=== PATIENT | female | born 1940 | race Caucasian/White ===

== ENCOUNTER 2017-01-02 09:51 | Emergency (ER) | payer OTHER, MEDICARE ==
[~2017-01-02] VITALS: Ht 149.9 cm; Wt 59.8 kg
[~2017-01-02 09:51] MED LIST: ALBUAER19 INH; ALEN70TA4 PO; ATEN25TA PO; CALC200T PO; FLUT230A INH; IPRASOL34 INH; LOSA50TA6 PO; PRLSR20 PO; PRVC/40 PO; TRAM-10 PO
[2017-01-02 10:24] VITALS: TEMP 37.2; Ht 149.9 cm; Wt 59.8 kg
[2017-01-02] MEDS ORDERED: SODIUM CHLORIDE 0.9% 1000ML 1,000 ML IV STA (11:04)
[2017-01-02] MEDS ORDERED: SODIUM CHLORIDE 0.9% 250ML 250 ML IV STA (11:04)
[2017-01-02] MEDS ORDERED: MoRPHine SULFATE 4 MG/ML 1 ML CARP\\VIAL IV STA (11:04)
[2017-01-02] MEDS ORDERED: ONDANSETRON INJ 2 MG/ML 2 ML VIAL IV STA (11:04)
[2017-01-02] MEDS ORDERED: OPTIRAY 320 IV PRN (11:15)
--- NOTE | 2017-01-02 11:15 | EMERGENCY ROOM VISIT NOTE ---
History Report prepared by Bharti: Wilbur Soriano Under the Supervision of: Dr. Abiola Horner M.D. First contact with patient: 10:40 Chief Complaint: ABDOMINAL PAIN Stated Complaint: LLQ SEVERE PAIN,SMALL BOWEL MOVEMENT,BLOODY STOOL History of Present Illness The patient is a 76 year old female who presents to the Emergency Room with complaints of severe and persistent left lower quadrant abdominal pain starting yesterday. She was recently diagnosed with an abscess and diverticulitis. She was started on Cipro and Flagyl with some relief. Yesterday, she had a sudden onset of her abdominal pain. Yesterday, she also started having chills, abdominal distention, diarrhea, and intermittent blood in stool. The patient denies fevers, lower extremity swelling, or any other complaints. She has a history of rectal hemorrhoids. She denies any history of kidney issues. Source of History: patient Onset: yesterday Position: abdomen (LLQ) Symptom Intensity: severe Timing: other (persistent) Associated Symptoms: + chills, + diarrhea, No fevers Review of Systems See HPI for pertinent positives & negatives. A total of 10 systems reviewed and were otherwise negative. Past Medical & Surgical Medical Problems: (1) Asthma (2) Bronchitis (3) Colonic diverticular abscess (4) Dyslipidemia (5) GERD (gastroesophageal reflux disease) (6) Heart disease (7) Hemorrhoids (8) Hypertension (9) Osteoporosis (10) PMR (polymyalgia rheumatica) Surgical Problems: (1) History of cholecystectomy Family History Cancer Diabetes mellitus Gallbladder disease Heart disease Hypertension Lung disease Seizures Social History Smoking Status: Never Smoker Alcohol Use: occasionally Marital Status: Housing Status: lives with significant other Current/Historical Medications Scheduled Atenolol (Tenormin), 25 MG PO DAILY Calcium Carbonate-Vitamin D (Oscal 500/200 D-3), 1 TAB PO DAILY Cetirizine (Zyrtec), 10 MG PO DAILY Ciprofloxacin Tab (Cipro), 500 MG PO BID Fluticasone-Salmeterol 230/21 Mcg (Advair Hfa 230/21 Mcg), 2 PUFFS INH BID Losartan Potassium (Cozaar), 75 MG PO DAILY Metronidazole (Flagyl), 500 MG PO TID Prednisone (Prednisone), 5 MG PO DAILY Scheduled PRN Albuterol Inhaler (Ventolin Inhaler), 2 PUFFS INH Q4H PRN for SOB/Wheezing Omeprazole (Prilosec), 20 MG PO DAILY PRN for Indigestion Tramadol (Ultram), 50-100 MG PO Q8H PRN for Pain Allergies Coded Allergies: Benzalkonium Chloride (Verified Allergy, Unknown, ., 03/14/14) Rosuvastatin (Verified Allergy, Unknown, ., 03/14/14) Amoxicillin (Verified Adverse Reaction, Unknown, stomach cramps, 03/14/14) Clavulanic Acid (Verified Adverse Reaction, Unknown, stomach cramps, ) Sulfamethoxazole w/Trimethoprim (Verified Adverse Reaction, Unknown, stomach cramps, 03/14/14) Physical Exam Vital Signs Date Time Temp Pulse Resp B/P Pulse Ox O2 Delivery O2 Flow Rate FiO2 01/02/17 14:38 74 20 147/63 98 01/02/17 14:15 74 20 147/63 98 Room Air 01/02/17 12:21 68 01/02/17 12:15 72 20 166/59 100 Room Air 01/02/17 10:24 37.2 80 20 146/72 99 Room Air Physical Exam Vital signs reviewed. General: Well-appearing, elderly, in no significant distress. HEENT: No scleral icterus, PERRLA, neck supple. Atraumatic. Cardiovascular: Regular rate and rhythm, no extra sounds. Pulmonary: Clear to auscultation bilaterally, normal work of breathing. Abdomen: Soft, mild left lower quadrant abdominal tenderness, no guarding or rigidity, nondistended, positive bowel sounds. Musculoskeletal: Atraumatic, no peripheral edema. Neurologic: Patient awake alert and oriented x 3, full strength in all 4 extremities. Cranial nerves 2 through 12 grossly intact. Skin: Warm, dry, no rash Medical Decision & Procedures ER Provider Diagnostic Interpretation: CT results as stated below per my review and radiologist interpretation: ABDOMEN AND PELVIS CT WITH IV CONTRAST CT DOSE: 324.71 mGy.cm HISTORY: Left lower quadrant abdominal pain. TECHNIQUE: Multiaxial CT images of the abdomen and pelvis were performed following the use of intravenous contrast. COMPARISON STUDY: None. FINDINGS: The lung bases are clear. No pneumoperitoneum. No pneumatosis. Dextroscoliosis of the lumbar spine with associated degenerative change. The liver, spleen, adrenal glands, and pancreas are unremarkable. The gallbladder is not identified and is likely surgically absent. There are few subcentimeter hypodense lesions within the kidneys. These are too small to characterize. Dominant lesion within the right kidney measures 7 mm. No hydronephrosis. The bladder is mildly distended. The uterus and ovaries are unremarkable. Colonic diverticulosis. Long segment of mild to moderate bowel wall thickening involving the descending colon and sigmoid colon. This is consistent with a nonspecific colitis. This is most pronounced at the descending colon where there is associated pericolonic fat stranding. IMPRESSION: 1. Nonspecific colitis involving the descending colon and sigmoid colon. This favors an infectious process such as C. Difficile colitis or less likely inflammatory bowel disease or ischemia. 2. Colonic diverticulosis. Electronically signed by: Salazar Mosley M.D. 01/02/2017 1:05 PM Dictated Date/Time: 01/02/2017 12:51 PM Laboratory Results 01/02/17 11:10 Red Blood Count 4.32, Mean Corpuscular Volume 92.1, Mean Corpuscular Hemoglobin 32.2, Mean Corpuscular Hemoglobin Concent 34.9, Mean Platelet Volume 9.6, Neutrophils (%) (Auto) 78.9, Lymphocytes (%) (Auto) 13.4, Monocytes (%) (Auto) 6.4, Eosinophils (%) (Auto) 0.8, Basophils (%) (Auto) 0.3, Neutrophils # (Auto) 8.46, Lymphocytes # (Auto) 1.44, Monocytes # (Auto) 0.69, Eosinophils # (Auto) 0.09, Basophils # (Auto) 0.03 01/02/17 11:10 Test 01/02/17 11:10 01/02/17 12:53 White Blood Count 10.73 K/uL (4.8-10.8) Red Blood Count 4.32 M/uL (4.2-5.4) Hemoglobin 13.9 g/dL (12.0-16.0) Hematocrit 39.8 % (37-47) Mean Corpuscular Volume 92.1 fL (80-100) Mean Corpuscular Hemoglobin 32.2 pg (25-34) Mean Corpuscular Hemoglobin Concent 34.9 g/dl (32-36) Platelet Count 228 K/uL (130-400) Mean Platelet Volume 9.6 fL (7.4-10.4) Neutrophils (%) (Auto) 78.9 % Lymphocytes (%) (Auto) 13.4 % Monocytes (%) (Auto) 6.4 % Eosinophils (%) (Auto) 0.8 % Basophils (%) (Auto) 0.3 % Neutrophils # (Auto) 8.46 K/uL (1.4-6.5) Lymphocytes # (Auto) 1.44 K/uL (1.2-3.4) Monocytes # (Auto) 0.69 K/uL (0.11-0.59) Eosinophils # (Auto) 0.09 K/uL (0-0.5) Basophils # (Auto) 0.03 K/uL (0-0.2) RDW Standard Deviation 45.1 fL (36.4-46.3) RDW Coefficient of Variation 13.4 % (11.5-14.5) Immature Granulocyte % (Auto) 0.2 % Immature Granulocyte # (Auto) 0.02 K/uL (0.00-0.02) Prothrombin Time 11.1 SECONDS (9.0-12.0) Prothromb Time International Ratio 1.0 (0.9-1.1) Activated Partial Thromboplast Time 26.0 SECONDS (21.0-31.0) Partial Thromboplastin Ratio 1.0 Anion Gap 9.0 mmol/L (3-11) Est Creatinine Clear Calc Drug Dose 37.8 ml/min Estimated GFR () 64.5 Estimated GFR (Non- 55.6 BUN/Creatinine Ratio 17.0 (10-20) Calcium Level 9.3 mg/dl (8.5-10.1) Magnesium Level 2.0 mg/dl (1.8-2.4) Total Bilirubin 0.7 mg/dl (0.2-1) Direct Bilirubin 0.1 mg/dl (0-0.2) Aspartate Amino Transf (AST/SGOT) 21 U/L (15-37) Alanine Aminotransferase (ALT/SGPT) 37 U/L (12-78) Alkaline Phosphatase 57 U/L (45-117) Total Protein 7.5 gm/dl (6.4-8.2) Albumin 4.1 gm/dl (3.4-5.0) Lipase 164 U/L (73-393) Urine Color YELLOW Urine Appearance CLEAR (CLEAR) Urine pH 6.5 (4.5-7.5) Urine Specific [place] 1.021 (1.000-1.030) Urine Protein NEG (NEG) Urine Glucose (UA) NEG (NEG) Urine Ketones NEG (NEG) Urine Occult Blood NEG (NEG) Urine Nitrite NEG (NEG) Urine Bilirubin NEG (NEG) Urine Urobilinogen NEG (NEG) Urine Leukocyte Esterase NEG (NEG) Laboratory results per my review. Medications Administered Medications (Trade) Dose Ordered Sig/Nayeli Route Start Time Stop Time Status Last Admin Dose Admin Sodium Chloride 1,000 ml @ 125 mls/hr Q8H STAT IV 01/02/17 11:04 01/02/17 15:26 DC 01/02/17 11:04 125 MLS/HR Sodium Chloride (Nss 250ml) 250 ml @ 999 mls/hr Q16M STAT IV 01/02/17 11:04 01/02/17 11:19 DC 01/02/17 11:04 999 MLS/HR ED Course 1040: Past medical records reviewed. The patient was evaluated in room C03. A complete history and physical examination was performed. 1104: Sodium Chloride 250 mls/hr IV, Sodium Chloride 1000 ml @ 125 mls/hr IV 1337: Upon reevaluation, the patient appeared to have improvement of her symptoms. I discussed findings with her. She verbalized agreement of the treatment plan. She was discharged home. Medical Decision Differential diagnosis: Etiologies such as appendicitis, diverticulitis, PUD, biliary pathology, UTI, pancreatitis, obstruction, mesenteric ischemia, aortic pathology, infections, inflammatory bowel disease, renal colic, as well as others were entertained. This patient was evaluated and appeared to be in no significant distress. Physical examination reveals tenderness along the left lower quadrant. Patient was hydrated with normal saline solution. Laboratory work reveals a normal white blood cell count. CT scan of the abdomen and pelvis was performed and reveals a nonspecific colitis. The patient was not able to provide a stool specimen. The patient is currently on Cipro and Flagyl per her general surgeon. She was advised to continue these medications. She will continue to hydrate and use Tylenol as needed for pain. She'll follow-up with her primary care physician this week for reevaluation. She will return to the ER for worsening of symptoms or any medical concerns. Impression Primary Impression: Colitis Scribe Attestation The scribe's documentation has been prepared under my direction and personally reviewed by me in its entirety. I confirm that the note above accurately reflects all work, treatment, procedures, and medical decision making performed by me. Departure Information Dispostion Home / Self-Care Referrals No Doctor, Assigned (PCP) Forms HOME CARE DOCUMENTATION FORM, IMPORTANT VISIT INFORMATION Patient Instructions My [facility] Additional Instructions Diagnosis: Colitis Continue your antibiotics as prescribed. Please submit a stool specimen as soon as possible. Contact your primary care physician for follow-up within the next several days. Drink plenty of clear fluids such as water and Gatorade. Avoid greasy and spicy foods. Avoid dairy until symptoms resolve. Return to the ER for worsening of symptoms or any medical concerns.
[2017-01-02 11:42] LABS: BASO % 0.3 %; BASO ABS # 0.03 K/uL (0-0.2); COMPLETE YES; EOS % 0.8 %; HEMATOCRIT 39.8 % (37-47); IG% 0.2 %; LYMPH % 13.4 %; LYMPH ABS # 1.44 K/uL (1.2-3.4); MEAN CELL VOLUME 92.1 fL (80-100); MEAN CORPUSCULAR HEMOGLOBIN 32.2 pg (25-34); MEAN CORPUSCULAR HGB CONC 34.9 g/dl (32-36); MEAN PLATELET VOLUME 9.6 fL (7.4-10.4); MONO % 6.4 %; NEUT % 78.9 %; PLATELET COUNT 228 K/uL (130-400); RED BLOOD COUNT 4.32 M/uL (4.2-5.4); WHITE BLOOD COUNT 10.73 K/uL (4.8-10.8)
[2017-01-02] MEDS ORDERED: PRED-301 PO (11:49)
[2017-01-02] MEDS ORDERED: METR-163 PO (11:49)
[2017-01-02] MEDS ORDERED: CIPR1TAB11 PO (11:49)
[2017-01-02] MEDS ORDERED: CETI10TA84 PO (11:51)
[2017-01-02 11:52] LABS: PROTHROMBIN TIME (PATIENT) 11.1 SECONDS (9.0-12.0)
[2017-01-02 11:56] LABS: CALCIUM 9.3 mg/dl (8.5-10.1); CREATININE 0.98 mg/dl (0.60-1.20); POTASSIUM 3.4 mmol/L (3.5-5.1)
--- NOTE | 2017-01-02 13:07 | DIAGNOSTIC IMAGING REPORT ---
ABDOMEN AND PELVIS CT WITH IV CONTRAST CT DOSE: 324.71 mGy.cm HISTORY: Left lower quadrant abdominal pain. TECHNIQUE: Multiaxial CT images of the abdomen and pelvis were performed following the use of intravenous contrast. COMPARISON STUDY: None. FINDINGS: The lung bases are clear. No pneumoperitoneum. No pneumatosis. Dextroscoliosis of the lumbar spine with associated degenerative change. The liver, spleen, adrenal glands, and pancreas are unremarkable. The gallbladder is not identified and is likely surgically absent. There are few subcentimeter hypodense lesions within the kidneys. These are too small to characterize. Dominant lesion within the right kidney measures 7 mm. No hydronephrosis. The bladder is mildly distended. The uterus and ovaries are unremarkable. Colonic diverticulosis. Long segment of mild to moderate bowel wall thickening involving the descending colon and sigmoid colon. This is consistent with a nonspecific colitis. This is most pronounced at the descending colon where there is associated pericolonic fat stranding. IMPRESSION: 1. Nonspecific colitis involving the descending colon and sigmoid colon. This favors an infectious process such as C. Difficile colitis or less likely inflammatory bowel disease or ischemia. 2. Colonic diverticulosis. Electronically signed by: Salazar Mosley M.D. 01/02/2017 1:05 PM Dictated Date/Time: 01/02/2017 12:51 PM
[2017-01-02 13:30] LABS: URINE APPEARANCE CLEAR (CLEAR); URINE BILIRUBIN NEG (NEG); URINE COLOR YELLOW; URINE NITRITE NEG (NEG); URINE PH 6.5 (4.5-7.5); URINE SPECIFIC GRAVITY 1.021 (1.000-1.030); UROBILINOGEN NEG (NEG); ZZUR CULT IF INDIC CLEAN CATCH NO
[2017-01-02 13:45] LABS: MANUAL MICROSCOPIC REQUIRED? NO; REVIEW REQ? NO
[2017-01-02 14:38] VITALS: BP 147/63; PULSE 74; O2SAT 98
[2017-02-12] MEDS ORDERED: SERT-234 PO (11:41)
[2017-02-12] MEDS ORDERED: ASPI81TA28 PO (11:41)
[2017-02-12] MEDS ORDERED: CETI10TA84 PO (11:43)
[2017-02-12] MEDS ORDERED: LORA-741 PO (11:43)
[2017-02-12] MEDS ORDERED: SALI1SPR15 NAE (11:46)
[2017-02-12] MEDS ORDERED: MULT-506 PO (11:46)
[2017-02-12] MEDS ORDERED: TRIA1SPR4 NAE (11:46)
[2017-02-12] MEDS ORDERED: PSEU60TA80 PO (11:46)
[2017-02-12] MEDS ORDERED: CHOL2000 PO (11:46)
[2017-02-12] MEDS ORDERED: ATOR-24 PO (11:46)
== END 2017-01-02 14:39 | disposition home or self-care (01) ==
LOC: C.EDB 09:53 → C.EDC 14:39
DX: K52.9 Noninfective gastroenteritis and colitis, unspecified (principal); J45.909 Unspecified asthma, uncomplicated; E78.5 Hyperlipidemia, unspecified; K21.9 Gastro-esophageal reflux disease without esophagitis; I10 Essential (primary) hypertension; M81.0 Age-related osteoporosis without current pathological fracture; M35.3 Polymyalgia rheumatica; Z90.49 Acquired absence of other specified parts of digestive tract; Z80.9 Family history of malignant neoplasm, unspecified; Z83.3 Family history of diabetes mellitus; Z82.49 Family history of ischemic heart disease and other diseases of the circulatory system; Z82.0 Family history of epilepsy and other diseases of the nervous system; Z79.899 Other long term (current) drug therapy

== ENCOUNTER 2017-03-24 05:34 | Inpatient (IN) | payer OTHER, MEDICARE ==
[2017-02-12 11:48] VITALS: BMI 26.0
--- NOTE | 2017-02-12 12:31 | PAT Medication Instructions ---
Service Date February 12, 2017. Current Home Medication List Albuterol Inhaler (Ventolin Inhaler), 2 PUFFS INH Q4H PRN for SOB/Wheezing Aspirin (Aspirin Ec), 81 MG PO Q2D Atenolol (Tenormin), 25 MG PO QAM Atorvastatin (Lipitor), 40 MG PO QPM Calcium Carbonate-Vitamin D (Oscal 500/200 D-3), 1 TAB PO QAM Cetirizine (Zyrtec), 10 MG PO QAM Cholecalciferol (Vitamin D3), 1 CAP PO QAM Fluticasone-Salmeterol 230/21 Mcg (Advair Hfa 230/21 Mcg), 2 PUFFS INH BID Lorazepam (Ativan), 0.5 MG PO TID PRN for PRN Losartan Potassium (Cozaar), 75 MG PO QAM Multivitamin (Multivitamin), 1 TAB PO QAM Omeprazole (Prilosec), 20 MG PO DAILY PRN for Indigestion Pseudoephedrine-Guaifenesin (Mucinex D), 400 MG PO QAM Saline (Saline Nasal [place] Infant), 1 SPRY YULISA PRN Sertraline (Zoloft), 150 MG PO HS Tramadol (Ultram), 50-100 MG PO Q6H PRN for Pain Triamcinolone Acetonide (Nasal (Nasacort Allergy 24Hr), 1 SPRAY YULISA BID Medication Instructions For Your Scheduled Surgery Aspirin (Aspirin Ec), 81 MG PO Q2D (patient self held medication starting one week prior to surgery) - Hold the following medications the morning of surgery: Pseudoephedrine-Guaifenesin (Mucinex D), 400 MG PO QAM Multivitamin (Multivitamin), 1 TAB PO QAM Losartan Potassium (Cozaar), 75 MG PO QAM Calcium Carbonate-Vitamin D (Oscal 500/200 D-3), 1 TAB PO QAM Cetirizine (Zyrtec), 10 MG PO QAM Cholecalciferol (Vitamin D3), 1 CAP PO QAM - Take the following medications the morning of surgery with a sip of water: Triamcinolone Acetonide (Nasal (Nasacort Allergy 24Hr), 1 SPRAY YULISA BID Tramadol (Ultram), 50-100 MG PO Q6H PRN for Pain (can take up to four hours prior to surgery if needed) Saline (Saline Nasal [place] Infant), 1 SPRY YULISA PRN Omeprazole (Prilosec), 20 MG PO DAILY PRN for Indigestion Lorazepam (Ativan), 0.5 MG PO TID PRN for PRN Fluticasone-Salmeterol 230/21 Mcg (Advair Hfa 230/21 Mcg), 2 PUFFS INH BID Atenolol (Tenormin), 25 MG PO QAM Albuterol Inhaler (Ventolin Inhaler), 2 PUFFS INH Q4H PRN for SOB/Wheezing ( bring with you to hospital on day of surgery) - Take the following medications as scheduled the night before surgery: Triamcinolone Acetonide (Nasal (Nasacort Allergy 24Hr), 1 SPRAY YULISA BID Tramadol (Ultram), 50-100 MG PO Q6H PRN for Pain Sertraline (Zoloft), 150 MG PO HS Saline (Saline Nasal [place] ), 1 SPRY YULISA PRN Lorazepam (Ativan), 0.5 MG PO TID PRN for PRN Fluticasone-Salmeterol 230/21 Mcg (Advair Hfa 230/21 Mcg), 2 PUFFS INH BID Atorvastatin (Lipitor), 40 MG PO QPM Albuterol Inhaler (Ventolin Inhaler), 2 PUFFS INH Q4H PRN for SOB/Wheezing If you have any questions please call us at [phone] or [phone] ( Maria Antonia) or [phone]
[2017-03-19 16:03] VITALS: BMI 26.0
[~2017-03-24] VITALS: Ht 88.9 cm; Wt 59.3 kg
[2017-03-24] VITALS (8 sets, daily range): BP systolic 97–142; BP diastolic 46–64; PULSE 59–66; TEMP 36.4–36.9; O2SAT 93–98; Ht 88.9 cm; Wt 59.3 kg
[~2017-03-24 05:34] MED LIST changes: -ALEN70TA4 PO; +ASPI81TA28 PO; +ATOR-24 PO; +CETI10TA84 PO; +CHOL2000 PO; -IPRASOL34 INH; +LORA-741 PO; +MULT-506 PO; -PRVC/40 PO; +PSEU60TA80 PO; +SALI1SPR15 NAE; +SERT-234 PO; +TRIA1SPR4 NAE
[2017-03-24] MEDS ORDERED: LACTATED RINGER'S 1000ML 1,000 ML IV SCH (06:00)
[2017-03-24] MEDS ORDERED: SODIUM CHLORIDE 0.9% 1000ML 1,000 ML IV SCH (06:00)
[2017-03-24] MEDS ORDERED: CEFOXITIN IV 2,000 MG in DEXTROSE 5% 50ML 50 ML IV SCH (06:00)
[2017-03-24] MEDS ORDERED: ONDANSETRON INJ 2 MG/ML 2 ML VIAL ONE (06:27)
[2017-03-24] MEDS ORDERED: PROPOFOL IV EMULSION 10 MG/ML 20 ML VIAL IV ONE (06:27)
[2017-03-24] MEDS ORDERED: NEOSTIGMINE METHYLSULFATE 5 MG/5 ML SYR ONE (06:27)
[2017-03-24] MEDS ORDERED: FENTANYL CITRATE INJ 50 MCG/1 ML 2 ML VIAL ONE ×2 (06:27→08:49)
[2017-03-24] MEDS ORDERED: GLYCOPYRROLATE INJ 0.2 MG/ML VIAL ONE (06:27)
[2017-03-24] MEDS ORDERED: ROCURONIUM BROMIDE 10 MG/ML 5 ML VIAL ONE (06:27)
[2017-03-24] MEDS ORDERED: DEXAMETHASONE SOD INJ 4 MG/ML VIAL ONE (06:27)
[2017-03-24] MEDS ORDERED: LIDOCAINE HCL 2% 2 ML VIAL (20MG/ML) ONE (06:27)
[2017-03-24] MEDS ORDERED: HYDROmorphone INJ 2 MG/ML SYR/VIAL ONE (06:28)
[2017-03-24] MEDS ORDERED: EpHEDrine SULFATE INJ 50 MG/ML AMP IV PRN (06:30)
[2017-03-24] MEDS ORDERED: HYDROmorphone INJ 1 MG/ML SYR IV PRN (06:30)
[2017-03-24] MEDS ORDERED: ONDANSETRON INJ 2 MG/ML 2 ML VIAL IV PRN ×2 (06:30→11:00)
[2017-03-24] MEDS ORDERED: ATROPINE SULFATE 0.1 MG/ML 5ML SYR IV PRN (06:30)
[2017-03-24] MEDS ORDERED: BUPIVACAINE 0.5 % 5 MG/1 ML MPF 30ML VIAL ONE (06:37)
--- NOTE | 2017-03-24 06:55 | History & Physical Bridge Note ---
H&P Re-Evaluation Bridge Note: I have examined the patient, reviewed the History & Physical and in the interval since the performance of the History & Physical I have noted the following changes of clinical significance: No changes noted
[2017-03-24] MEDS ORDERED: EpHEDrine SULFATE 50MG/5ML SYR ONE (07:44)
[2017-03-24] MEDS ORDERED: ALBUTEROL 0.083% NEBU SOLN 3 ML VIAL INH PRN (09:30)
[2017-03-24] MEDS: SODIUM CHLORIDE 0.9% 1000ML 1,000 ML IV SCH (10:56)
--- NOTE | 2017-03-24 10:56 | [facility] Post Operative Brief Note ---
Immediate Operative Summary Operative Date Mar 24, 2017. Pre-Operative Diagnosis Diverticulitis of sigmoid colon, sigmoid colon stricture Post-Operative Diagnosis Diverticulitis of sigmoid colon, sigmoid colon stricture Procedure(s) Performed Laparoscopic sigmoid colectomy Surgeon Dr. Pennington Pharmacy Sales Assistant Surgeon(s) Melva Walls PA-C Estimated Blood Loss 150 cc Findings See dictation Specimens sigmoid colon Drains None Anesthesia General Complication(s) None Disposition Recovery Room / PACU
[2017-03-24] MEDS ORDERED: NALOXONE HCL 0.4 MG/1 ML VIAL/CARP IV PRN (11:00)
[2017-03-24] MEDS ORDERED: HYDROmorphone HCL 0.5MG/ML 50 ML CASSETTE ONE (11:19)
[2017-03-24] MEDS: FENTANYL CITRATE INJ 50 MCG/1 ML 2 ML VIAL IV PRN ×2 (11:20→11:25)
--- NOTE | 2017-03-24 12:23 | Anesthesiology Progress Note ---
Anesthesia Post Op Note Date & Time Mar 24, 2017 at 12:22 Vital Signs Pain Intensity: 4 Vital Signs Past 12 Hours Date Time Temp Pulse Resp B/P (MAP) Pulse Ox O2 Delivery O2 Flow Rate FiO2 03/24/17 12:15 63 14 106/37 97 Mask 3 03/24/17 12:00 36.9 62 14 94/31 99 Mask 3 03/24/17 11:50 64 15 99/41 97 Mask 3 03/24/17 11:40 66 17 107/40 94 Mask 5 03/24/17 11:30 68 17 104/46 98 Mask 10 03/24/17 11:20 75 16 136/48 99 Mask 10 03/24/17 11:10 36.2 86 16 121/42 99 Mask 10 03/24/17 05:50 36.8 61 18 142/47 97 Room Air Notes Mental Status: alert / awake / arousable, participated in evaluation Pt Amnestic to Procedure: Yes Nausea / Vomiting: adequately controlled Pain: adequately controlled Airway Patency, RR, SpO2: stable & adequate BP & HR: stable & adequate Hydration State: stable & adequate Anesthetic Complications: no major complications apparent
[2017-03-24] MEDS: HYDROmorphone HCL 0.5MG/ML 50 ML CASSETTE IV PRN ×3 (12:32→23:06)
[2017-03-24] MEDS: ALUMINUM/MAGNESIUM SUSP 30 ML UDC NG SCH ×3 (13:00→21:10)
[2017-03-24] MEDS: D5W AND 1/2NSS + 20MEQ KCL 1,000 ML IV SCH ×2 (14:13→22:25)
--- NOTE | 2017-03-24 20:43 | OPERATIVE REPORT ---
DATE OF OPERATION: 03/24/2017 PREOPERATIVE DIAGNOSIS: Stricture of the sigmoid colon and history of multiple episodes of diverticulitis. POSTOPERATIVE DIAGNOSIS: Same. PROCEDURE: Laparoscopic-assisted sigmoid colectomy with mobilization of the splenic flexure. SURGEON: Mann Pennington MD. PURSE SEINER: Melva Walls PA-C. FINDINGS: The sigmoid colon just below the sacral promontory was matted together and densely adherent to the posterior pelvic wall as well as to the lateral side of the pelvic wall on the left. There appeared to be old inflammatory response posterior to that area. This extended down to 5-6 cm below the sacral promontory. The bowel distal to that which was rectum was normal. The bowel in the area of where it was matted together was thickened. The proximal sigmoid colon was more normal in thickness. The distal descending colon was normal. There were no other bowel abnormalities identified. The omentum was adherent to the anterior abdominal wall beneath her scar from previous surgery. TECHNIQUE: The patient was given a general anesthetic, and the area was prepped and draped in usual sterile fashion. A small vertical incision was made just below the umbilicus, carried down through the subcutaneous tissue to the fascia which was grasped with 2 Teresa clamps and incised between. The peritoneum was identified, incised, and the introducer was placed bluntly. The abdomen was then insufflated to a pressure of 15 mmHg with carbon dioxide. The 2 right-sided introducers were then placed under direct vision. Through these 3 incisions, the omentum was taken down off the anterior abdominal wall using blunt and LigaSure dissection. It was carried from inferior to superior. The omentum was dissected off the undersurface of the falciform ligament which freed up the left upper quadrant. I then began at the junction of the descending colon and sigmoid colon and opened the line of Toldt reflecting the left colon medially. I worked from inferior to superior up along the descending colon to the splenic flexure. I was able to open the splenocolic ligament. I then was able to dissect some of the omentum off the distal transverse colon and worked down towards the posterior abdominal wall freeing the mesentery. There were some other flimsy attachments that were divided. That allowed me to reflect the transverse colon at the splenic flexure inferiorly mobilizing the splenic flexure. I then worked along the mesentery inferiorly of the descending colon, freeing it as well. That allowed me then to divide attachments of the sigmoid colon along the lateral abdominal wall at the line of Toldt and mobilize it medially. I reached the area where there was quite thick tissue attaching the sigmoid colon to the right pelvic side wall and to the pelvic wall posteriorly. At that point, I decided to convert to the open portion of the procedure. The gas was allowed to escape and the introducers were removed. The infraumbilical incision was extended inferiorly to the skin and subcutaneous tissue using cautery for that layer to assure hemostasis. The fascia was opened in the midline. The peritoneum was opened along the length of the skin incision. The Bookwalter retractor was placed. I then worked on the anterior surface of the recommend dissected the bladder away. It was loosely adherent. That allowed me to visualize the lateral lopez of the rectum; however, I could not mobilize the sigmoid colon off the pelvic posterior wall. I then decided to divide the bowel at the site to be chosen and then worked behind the sigmoid colon. I chose the site for division of the sigmoid colon at the junction of the distal descending colon and the mesentery away from that. The bowel was divided using the MEÑO stapler. I then divided the mesentery of the sigmoid colon using the LigaSure as well as using a clamp-clamp divide and ligate technique using 3-0 and 2-0 Vicryl ties where appropriate. That allowed me to dissect down to the sacral promontory, and at that point, I was able to establish the fact that there was a conglomeration of sigmoid colon. I then worked down along the right lateral side, freeing that, and doing so, I was able to then establish a plane behind the sigmoid colon on the right side and then worked towards the left. It was clear then that the thickened peritoneum and the old inflammatory tissue was adhering the sigmoid colon to the posterior abdominal wall, and I was then able to divide it and establish a plane behind that elevating and the sigmoid out of the pelvis. I then dissected down along the rectal wall until I got to a point behind the areas of inflammation. I was able to separate the mesentery away from the rectal wall and divide it, freeing the wall completely. The bowel was divided there using a TA stapler and the specimen was removed. Hemostasis was obtained using electrocautery. I then cleaned the rectal wall of any of fat where the anastomosis was to be performed. The proximal staple line was then addressed. The staple line was removed and sizers were placed. A 28 EEA was chosen. The anvil with trocar was placed intraluminally, and the bowel was closed with a TA stapler. The trocar was then brought out through the wall, and the anvil abutted the staple line on the inside. The anal opening was then dilated, and the TA stapler was passed through the anus through the rectum until the end of it abutted the distal staple line. The trocar was then passed out of the wall anterior to the staple line. The anvil was attached to the trocar and the bowel was approximated using the stapler. This was done making sure that there was nothing intervening between the 2 serosal layers of bowel. Once the green line that was seen in the window of the stapler was fired, it was opened 2-1/2 turns and removed. The donuts were intact. The bowel was manually compressed above the staple line, and air was injected after the pelvis was filled with saline and there was no leak. The saline was removed, and the area was inspected for bleeding and none was seen. There was no tension at the point of the anastomosis. The abdomen was irrigated and irrigation removed. The fascia of the vertical midline incision was then closed with a running #1 PDS and the skin was closed with kamron. The estimated blood loss was 150 mL. Sponge, needle and instrument counts were correct x2 prior to closure. The patient tolerated the surgical procedure without complication and was transferred to recovery. I attest to the content of the Intraoperative Record and any orders documented therein. Any exception s are noted below.
[2017-03-25 03:40] VITALS: BP 116/60; PULSE 60; TEMP 37; O2SAT 96
[2017-03-25 05:46] VITALS: O2SAT 95
[2017-03-25 06:38] LABS: COMPLETE YES; EOS % 0.1 %; HEMATOCRIT 31.5 % (37-47); IG% 0.2 %; LYMPH % 5.2 %; LYMPH ABS # 0.55 K/uL (1.2-3.4); MEAN CELL VOLUME 92.1 fL (80-100); MEAN CORPUSCULAR HEMOGLOBIN 30.4 pg (25-34); MEAN PLATELET VOLUME 8.6 fL (7.4-10.4); MONO % 8.4 %; NEUT % 86.1 %; PLATELET COUNT 190 K/uL (130-400); RED BLOOD COUNT 3.42 M/uL (4.2-5.4); WHITE BLOOD COUNT 10.56 K/uL (4.8-10.8)
[2017-03-25 07:03] LABS: BUN/CREATININE RATIO 15.4 (10-20); CREATININE 1.2 mg/dl (0.60-1.20); POTASSIUM 4.7 mmol/L (3.5-5.1)
[2017-03-25 07:15] VITALS: BP 114/51; PULSE 69; TEMP 36.8; O2SAT 95
[2017-03-25] MEDS: D5W AND 1/2NSS + 20MEQ KCL 1,000 ML IV SCH ×2 (07:15→16:25)
[2017-03-25] MEDS: HYDROmorphone HCL 0.5MG/ML 50 ML CASSETTE IV PRN ×3 (07:16→23:02)
--- NOTE | 2017-03-25 08:00 | Anesthesiology Progress Note ---
Anesthesia Post Op Note Date & Time Mar 25, 2017 at 07:59 Vital Signs Vital Signs Past 12 Hours Date Time Temp Pulse Resp B/P (MAP) Pulse Ox O2 Delivery O2 Flow Rate FiO2 03/25/17 07:15 36.8 69 19 114/51 (72) 95 Room Air 03/25/17 05:46 95 Room Air 03/25/17 03:40 37.0 60 16 116/60 (78) 96 Oxymask 1.0 03/25/17 00:00 Oxymask 1.0 03/24/17 22:50 36.9 65 16 115/60 (78) 97 Oxymask 1.0 Notes Mental Status: alert / awake / arousable, participated in evaluation Pt Amnestic to Procedure: Yes Nausea / Vomiting: adequately controlled Pain: adequately controlled Airway Patency, RR, SpO2: stable & adequate BP & HR: stable & adequate Hydration State: stable & adequate Anesthetic Complications: no major complications apparent
[2017-03-25] MEDS: SODIUM CHLORIDE 0.9% 1000ML 1,000 ML IV SCH (08:29)
[2017-03-25] MEDS: ALUMINUM/MAGNESIUM SUSP 30 ML UDC NG SCH ×4 (08:30→20:38)
--- NOTE | 2017-03-25 12:28 | Surgery Progress Note ---
Surgery Progress Note Date of Service Mar 25, 2017. Subjective Post OP Day: 1 (s/p laparoscopic sigmoid colectomy) + feeling well, + complaints (sore throat, LLQ abdominal pain (controlled with pain medication)), + flatus (liquid yellow stool), + pain controlled, No chest pain, No SOB, No bowel movement, No nausea, No vomiting Objective Vital Signs: Date Time Temp Pulse Resp B/P (MAP) Pulse Ox O2 Delivery O2 Flow Rate FiO2 03/25/17 08:00 Room Air 03/25/17 07:15 36.8 69 19 114/51 (72) 95 Room Air 03/25/17 05:46 95 Room Air 03/25/17 03:40 37.0 60 16 116/60 (78) 96 Oxymask 1.0 03/25/17 00:00 Oxymask 1.0 03/24/17 22:50 36.9 65 16 115/60 (78) 97 Oxymask 1.0 03/24/17 19:56 36.6 65 16 113/64 (80) 94 Oxymask 1.0 03/24/17 15:41 36.4 62 16 117/59 (78) 98 Oxymask 3.0 Nasal Cannula 03/24/17 15:30 Oxymask 03/24/17 14:30 36.5 62 16 116/62 (80) 93 3.0 03/24/17 13:29 59 18 97/49 (65) 96 Oxymask 3.0 03/24/17 13:00 36.5 65 18 112/46 (68) 97 Oxymask 3.0 03/24/17 12:30 97 Oxymask 3.0 03/24/17 12:30 36.8 66 18 97/59 (72) 97 Oxymask 3.0 03/24/17 12:30 96 Mask 3.0 Physical Exam: nasogastric drainage (bilious, 400 cc since surgery) General Appearance: WD/WN, no apparent distress Head: normocephalic, atraumatic Neck: trachea midline Respiratory/Chest: no respiratory distress, no accessory muscle use Abdomen: non distended, soft, + tenderness (appropriate post op) Incision(s): clean, dry, intact, no erythema, no drainage Laboratory Results: Results Past 24 Hours Test 03/25/17 06:27 Range/Units White Blood Count 10.56 4.8-10.8 K/uL Red Blood Count 3.42 4.2-5.4 M/uL Hemoglobin 10.4 12.0-16.0 g/dL Hematocrit 31.5 37-47 % Mean Corpuscular Volume 92.1 80-100 fL Mean Corpuscular Hemoglobin 30.4 25-34 pg Mean Corpuscular Hemoglobin Concent 33.0 32-36 g/dl Platelet Count 190 130-400 K/uL Mean Platelet Volume 8.6 7.4-10.4 fL Neutrophils (%) (Auto) 86.1 % Lymphocytes (%) (Auto) 5.2 % Monocytes (%) (Auto) 8.4 % Eosinophils (%) (Auto) 0.1 % Basophils (%) (Auto) 0.0 % Neutrophils # (Auto) 9.09 1.4-6.5 K/uL Lymphocytes # (Auto) 0.55 1.2-3.4 K/uL Monocytes # (Auto) 0.89 0.11-0.59 K/uL Eosinophils # (Auto) 0.01 0-0.5 K/uL Basophils # (Auto) 0.00 0-0.2 K/uL RDW Standard Deviation 44.4 36.4-46.3 fL RDW Coefficient of Variation 13.2 11.5-14.5 % Immature Granulocyte % (Auto) 0.2 % Immature Granulocyte # (Auto) 0.02 0.00-0.02 K/uL Sodium Level 132 136-145 mmol/L Potassium Level 4.7 3.5-5.1 mmol/L Chloride Level 100 98-107 mmol/L Carbon Dioxide Level 23 21-32 mmol/L Anion Gap 9.0 3-11 mmol/L Blood Urea Nitrogen 18 7-18 mg/dl Creatinine 1.20 0.60-1.20 mg/dl Est Creatinine Clear Calc Drug Dose 30.3 ml/min Estimated GFR () 50.1 Estimated GFR (Non- 43.3 BUN/Creatinine Ratio 15.4 10-20 Random Glucose 114 70-99 mg/dl Assessment & Plan POD # 1 s/p laparoscopic sigmoid colectomy - vitals stable - H&H stable, chronic anemia - 400 cc NGT output since surgery - + flatus - pain controlled - adequate urine output Plan: Continue pain management Continue NGT to LIS Continue NPO Continue IV fluids Daily dressing changes OOB to chair and ambulation with assistance Start Advair home medication Dr. Pennington has seen and examined patient, agrees with above.
[2017-03-25 13:16] LABS: CALCIUM 8.1 mg/dl (8.5-10.1)
[2017-03-25 14:54] VITALS: BP 119/57; PULSE 70; TEMP 36.4; O2SAT 93
[2017-03-25 20:06] VITALS: BP 145/69; PULSE 80; TEMP 37.2; O2SAT 94
[2017-03-25] MEDS ORDERED: CHLORASEPTIC 1.4% SOLN 180 ML BTL MT PRN (20:15)
[2017-03-25] MEDS ORDERED: NURSING DECISION MEDICATION ORDER SCH (20:15)
[2017-03-25 23:10] VITALS: BP 137/57; PULSE 71; TEMP 37.1; O2SAT 93
[2017-03-26] MEDS: D5W AND 1/2NSS + 20MEQ KCL 1,000 ML IV SCH ×3 (00:08→18:16)
[2017-03-26 03:46] VITALS: BP 156/56; PULSE 73; TEMP 37.2; O2SAT 93
[2017-03-26] MEDS: HYDROmorphone HCL 0.5MG/ML 50 ML CASSETTE IV PRN (06:58)
[2017-03-26] MEDS: SODIUM CHLORIDE 0.9% 1000ML 1,000 ML IV SCH (07:18)
[2017-03-26 07:27] LABS: BASO % 0.1 %; BASO ABS # 0.01 K/uL (0-0.2); COMPLETE YES; IG% 0.1 %; LYMPH % 9.1 %; MEAN CELL VOLUME 92.9 fL (80-100); MEAN CORPUSCULAR HEMOGLOBIN 30.8 pg (25-34); MEAN CORPUSCULAR HGB CONC 33.1 g/dl (32-36); MEAN PLATELET VOLUME 9.1 fL (7.4-10.4); MONO % 7.8 %; NEUT % 81.9 %; PLATELET COUNT 180 K/uL (130-400); RED BLOOD COUNT 3.12 M/uL (4.2-5.4); WHITE BLOOD COUNT 7.73 K/uL (4.8-10.8)
[2017-03-26 07:50] VITALS: BP 159/65; PULSE 74; TEMP 36.9; O2SAT 93
[2017-03-26 07:59] LABS: BUN/CREATININE RATIO 11.2 (10-20); CALCIUM 8.3 mg/dl (8.5-10.1); CREATININE 1.1 mg/dl (0.60-1.20); POTASSIUM 4.8 mmol/L (3.5-5.1)
[2017-03-26] MEDS: ALUMINUM/MAGNESIUM SUSP 30 ML UDC NG SCH ×3 (08:49→15:21)
--- NOTE | 2017-03-26 09:42 | Surgery Progress Note ---
Surgery Progress Note Date of Service Mar 26, 2017. Subjective Post OP Day: 2 (s/p laparoscopic sigmoid colectomy) + feeling well, + bowel movement, + flatus, + pain controlled, No complaints, No chest pain, No SOB, No nausea, No vomiting Objective Vital Signs: Date Time Temp Pulse Resp B/P (MAP) Pulse Ox O2 Delivery O2 Flow Rate FiO2 03/26/17 07:50 36.9 74 18 159/65 (96) 93 Room Air 03/26/17 03:46 37.2 73 16 156/56 (89) 93 Room Air 03/26/17 00:00 Room Air 03/25/17 23:10 37.1 71 16 137/57 (83) 93 Room Air 03/25/17 20:06 37.2 80 18 145/69 (94) 94 Room Air 03/25/17 15:30 Room Air 03/25/17 14:54 36.4 70 18 119/57 (77) 93 Room Air Physical Exam: nasogastric drainage (bilious) General Appearance: WD/WN, no apparent distress Head: normocephalic, atraumatic Neck: trachea midline Respiratory/Chest: no respiratory distress, no accessory muscle use, + pertinent finding (cough) Abdomen: non distended, soft, + tenderness (appropriate post op but minimal) Incision(s): clean, dry, intact, no erythema, no drainage Laboratory Results: Results Past 24 Hours Test 03/26/17 06:43 Range/Units White Blood Count 7.73 4.8-10.8 K/uL Red Blood Count 3.12 4.2-5.4 M/uL Hemoglobin 9.6 12.0-16.0 g/dL Hematocrit 29.0 37-47 % Mean Corpuscular Volume 92.9 80-100 fL Mean Corpuscular Hemoglobin 30.8 25-34 pg Mean Corpuscular Hemoglobin Concent 33.1 32-36 g/dl Platelet Count 180 130-400 K/uL Mean Platelet Volume 9.1 7.4-10.4 fL Neutrophils (%) (Auto) 81.9 % Lymphocytes (%) (Auto) 9.1 % Monocytes (%) (Auto) 7.8 % Eosinophils (%) (Auto) 1.0 % Basophils (%) (Auto) 0.1 % Neutrophils # (Auto) 6.33 1.4-6.5 K/uL Lymphocytes # (Auto) 0.70 1.2-3.4 K/uL Monocytes # (Auto) 0.60 0.11-0.59 K/uL Eosinophils # (Auto) 0.08 0-0.5 K/uL Basophils # (Auto) 0.01 0-0.2 K/uL RDW Standard Deviation 46.4 36.4-46.3 fL RDW Coefficient of Variation 13.7 11.5-14.5 % Immature Granulocyte % (Auto) 0.1 % Immature Granulocyte # (Auto) 0.01 0.00-0.02 K/uL Sodium Level 140 136-145 mmol/L Potassium Level 4.8 3.5-5.1 mmol/L Chloride Level 109 98-107 mmol/L Carbon Dioxide Level 24 21-32 mmol/L Anion Gap 7.0 3-11 mmol/L Blood Urea Nitrogen 12 7-18 mg/dl Creatinine 1.10 0.60-1.20 mg/dl Est Creatinine Clear Calc Drug Dose 33.0 ml/min Estimated GFR () 55.7 Estimated GFR (Non- 48.1 BUN/Creatinine Ratio 11.2 10-20 Random Glucose 147 70-99 mg/dl Calcium Level 8.3 8.5-10.1 mg/dl Assessment & Plan POD # 2 s/p laparoscopic sigmoid colectomy - vitals stable - H&H stable, chronic anemia - Minimal NGT output since surgery - + flatus and bowel movement - pain controlled - adequate urine output Plan: D/C Dilaudid TAX ACCOUNTANT start PO Percocet DC NGT Start Clear liquids Daily dressing changes start PO home meds OOB to chair and ambulation Continue Lovenox for DVT prophylaxis and SCDs will continue to monitor Dr. Pennington has seen and examined patient agrees with above
[2017-03-26] MEDS ORDERED: PANTOprazole SOD 40 MG TAB PO PRN (09:45)
[2017-03-26] MEDS ORDERED: SODIUM CHLORIDE 0.65% NA SOLN 45 ML (OCEAN) NAE PRN (09:45)
[2017-03-26] MEDS ORDERED: LORAZEPAM 0.5 MG TAB PO PRN (09:45)
[2017-03-26] MEDS ORDERED: TRAMADOL HCL 50 MG TAB PO PRN (09:45)
[2017-03-26] MEDS: ASPIRIN 81 MG ECTAB PO SCH (10:44)
[2017-03-26] MEDS: ENOXAPARIN 40 MG/0.4 ML SYR SQ SCH (10:44)
[2017-03-26 11:43] VITALS: BP 145/71; PULSE 85; TEMP 36.9; O2SAT 93
[2017-03-26] MEDS ORDERED: NURSING VERBAL MED ORDER ONE (15:30)
[2017-03-26 15:42] VITALS: BP 158/69; PULSE 85; TEMP 37.2; O2SAT 95
[2017-03-26] MEDS: LOSARTAN POTASSIUM 50 MG TAB PO SCH (15:47)
[2017-03-26] MEDS: ALBUTEROL HFA 8 GM INHALER INH PRN ×2 (17:41→21:25)
[2017-03-26] MEDS: TRIAMCINOLONE ACET NASAL SPRAY 10.8ML BTL NAE SCH (20:51)
[2017-03-26] MEDS: OXYCODONE/ACETAMINOPHEN 5-325 TAB PO PRN (20:52)
[2017-03-26] MEDS: SERTRALINE HCL 100 MG TAB PO SCH (20:53)
[2017-03-26] MEDS: ATORVASTATIN 40 MG TAB PO SCH (20:53)
[2017-03-26] MEDS: ADVAIR 230/21 INH SCH (20:53)
[2017-03-26] MEDS ORDERED: ALBUTEROL 0.5% NEB SOLN 2.5 MG/0.5 ML VIAL INH PRN (21:45)
[2017-03-26 22:03] VITALS: PULSE 76; O2SAT 96
[2017-03-26 23:18] VITALS: BP 138/64; PULSE 87; TEMP 36.8; O2SAT 93
[2017-03-27] MEDS: D5W AND 1/2NSS + 20MEQ KCL 1,000 ML IV SCH (05:48)
[2017-03-27] MEDS: ALBUTEROL HFA 8 GM INHALER INH PRN (05:50)
[2017-03-27 06:43] LABS: BASO % 0.2 %; BASO ABS # 0.01 K/uL (0-0.2); COMPLETE YES; HEMATOCRIT 27.5 % (37-47); LYMPH ABS # 0.88 K/uL (1.2-3.4); MEAN CELL VOLUME 93.5 fL (80-100); MEAN CORPUSCULAR HEMOGLOBIN 31.3 pg (25-34); MEAN CORPUSCULAR HGB CONC 33.5 g/dl (32-36); MONO % 6.9 %; NEUT % 74.9 %; PLATELET COUNT 186 K/uL (130-400); RED BLOOD COUNT 2.94 M/uL (4.2-5.4); WHITE BLOOD COUNT 5.51 K/uL (4.8-10.8)
[2017-03-27 06:54] VITALS: BP 159/74; PULSE 80; TEMP 37; O2SAT 96
--- NOTE | 2017-03-27 07:51 | Surgery Progress Note ---
Surgery Progress Note Date of Service Mar 27, 2017. Subjective Post OP Day: 3 + bowel movement, + flatus, + diet (tolerated clear liquid diet), No nausea, No vomiting Objective Vital Signs: Date Time Temp Pulse Resp B/P (MAP) Pulse Ox O2 Delivery O2 Flow Rate FiO2 03/27/17 06:54 37.0 80 17 159/74 (102) 96 Room Air 03/27/17 00:15 Room Air 03/26/17 23:18 36.8 87 16 138/64 (88) 93 Room Air 03/26/17 22:03 76 18 96 Room Air 03/26/17 15:42 37.2 85 18 158/69 (98) 95 Room Air 03/26/17 15:30 Room Air 03/26/17 11:43 36.9 85 16 145/71 (95) 93 Room Air 03/26/17 08:00 Room Air 03/26/17 07:50 36.9 74 18 159/65 (96) 93 Room Air Abdomen: normal bowel sounds, non distended, soft Incision(s): clean, dry, intact, no erythema, no drainage Laboratory Results: Results Past 24 Hours Test 03/27/17 06:00 Range/Units White Blood Count 5.51 4.8-10.8 K/uL Red Blood Count 2.94 4.2-5.4 M/uL Hemoglobin 9.2 12.0-16.0 g/dL Hematocrit 27.5 37-47 % Mean Corpuscular Volume 93.5 80-100 fL Mean Corpuscular Hemoglobin 31.3 25-34 pg Mean Corpuscular Hemoglobin Concent 33.5 32-36 g/dl Platelet Count 186 130-400 K/uL Mean Platelet Volume 9.0 7.4-10.4 fL Neutrophils (%) (Auto) 74.9 % Lymphocytes (%) (Auto) 16.0 % Monocytes (%) (Auto) 6.9 % Eosinophils (%) (Auto) 2.0 % Basophils (%) (Auto) 0.2 % Neutrophils # (Auto) 4.13 1.4-6.5 K/uL Lymphocytes # (Auto) 0.88 1.2-3.4 K/uL Monocytes # (Auto) 0.38 0.11-0.59 K/uL Eosinophils # (Auto) 0.11 0-0.5 K/uL Basophils # (Auto) 0.01 0-0.2 K/uL RDW Standard Deviation 46.4 36.4-46.3 fL RDW Coefficient of Variation 13.6 11.5-14.5 % Immature Granulocyte % (Auto) 0.0 % Immature Granulocyte # (Auto) 0.00 0.00-0.02 K/uL Assessment & Plan S/P sigmoid colectomy Bowels moving No increasing pain Advance diet Had wheezing last night Responded to nebulizer but still feels a little short of breath Will get internal medicine to see her Follow H&H
[2017-03-27] MEDS ORDERED: NURSING VERBAL MED ORDER ONE (08:00)
[2017-03-27] MEDS ORDERED: PSEUDOEPHEDRINE HCL 30 MG TAB PO SCH (09:00)
[2017-03-27] MEDS ORDERED: GUAIFENESIN 600 MG TABCR PO SCH (09:00)
--- NOTE | 2017-03-27 09:07 | Medical Consult ---
Consultation Date of Consultation: Mar 27, 2017. Attending Physician: Mann Pennington M.D. Reason for Consultation: post-op asthma exacerbation History of Present Illness Mrs. Richter is a 77 yo F who underwent a planned laparoscopic assisted sigmoid colectomy on 03/24 for recurrent diverticulitis and sigmoid stricture found on recent colonoscopy. She has a h/o asthma and experienced some shortness of breath with wheezing post-operatively, treated with an albuterol neb last night. She also has underlying PMR and is on chronic prednisone which was stopped in Oct 2016, non-obstructive CAD by [facility] performed on 08/10, chronic LBBB , Stage III CKD, and a h/o aspergillosis that was treated. She underwent cardiac clearance pre-operatively with an echo in January 2017 revealing EF 60-64%, grade I LV diastolic dysfunction, moderate AoV regurgitation with stable AR and no evidence of pulmonary HTN. She also had a Lexiscan which was negative for inducible ischemia (formal report not found in EPIC). Most recent PFTs were done on 10/04/2015 and spirometry results were within normal limits. She currently reports wheezing, shortness of breath and some cough productive of yellowish phlegm with chills but no fevers. She also reports a sore throat and aside from the ETT in surgery three days ago, also had the NGT removed just yesterday, which is helping, but appears to have been the trigger for this throat pain. She is using Chloroseptic throat spray at her bedside which is helping somewhat. She denies chest pain, headache, ear pain, sinus congestion or sinus pain (reports frequent sinus infections), joint pains, diarrhea, constipation, blood per rectum, nausea or vomiting. She is currently on a full liquid diet and tolerating this. She is ambulatory but a little wobbly since taking her Ativan earlier. Although her home medication list reflects that she is taking sudafed, she states that she doesn't take it because it makes her "woozy." She continues to take Zyrtec and Advair here but is off her Nasocort and is using saline nasal spray. Past Medical/Surgical History Medical Problems: (1) Depression Status: Chronic (2) Asthma Status: Chronic (3) Bronchitis Status: Resolved (4) Chronic sinusitis Status: Chronic (5) Colonic diverticular abscess Status: Chronic (6) Dyslipidemia Status: Chronic (7) GERD (gastroesophageal reflux disease) Status: Chronic (8) H/O aspergillosis Status: Chronic (9) Heart disease Status: Chronic (10) Hemorrhoids Status: Chronic (11) High cholesterol Status: Chronic (12) HTN (hypertension) Status: Chronic (13) Hypertension Status: Chronic (14) Osteoporosis Status: Chronic (15) PMR (polymyalgia rheumatica) Status: Chronic Surgical Problems: (1) History of cholecystectomy Status: Resolved Family History Cancer Diabetes mellitus Gallbladder disease Heart disease Hypertension Lung disease Seizures Social History Smoking Status: Never Smoker Smokeless Tobacco Use: No Alcohol Use: occasionally Drug Use: none Marital Status: Housing Status: lives with significant other Occupation Status: retired Allergies Coded Allergies: Benzalkonium Chloride (Verified Allergy, Unknown, PRESERVATIVE IN EYE DROP -VERY RED EYES, 03/24/17) Sulfamethoxazole w/Trimethoprim (Unverified Allergy, Unknown, RASH, ) Amoxicillin (Verified Adverse Reaction, Unknown, stomach cramps, 03/24/17) Clavulanic Acid (Verified Adverse Reaction, Unknown, stomach cramps, ) Rosuvastatin (Unverified Adverse Reaction, Unknown, MUSCLE ACHES, 03/24/17) Home Medications Active Reported Saline Nasal Buda Infant (Saline) 0.65 % Spr 1 [place] YULISA PRN 7 Days Multivitamin (Multivitamins) Tab 1 Tab PO QAM Vitamin D3 (Cholecalciferol) 2,000 Unit Cap 1 Cap PO QAM 90 Days Mucinex D (Pseudoephedrine-Guaifenesin) 1 Tab Tab 400 Mg PO QAM 10 Days Nasacort Allergy 24Hr (Triamcinolone Acetonide (Nasal) 55 Mcg/Act Spr 1 [place]uda YULISA BID Lipitor (Atorvastatin Calcium) 40 Mg Tab 40 Mg PO QPM Zyrtec (Cetirizine HCl) 10 Mg Tab 10 Mg PO QAM Ativan (Lorazepam) 0.5 Mg Tab 0.5 Mg PO TID PRN Zoloft (Sertraline HCl) 100 Mg Tab 150 Mg PO HS Aspirin Ec (Aspirin) 81 Mg Tab 81 Mg PO Q2D AM Oscal 500/200 D-3 (Calcium Carbonate-Vitamin D) 1 Tab Tab 1 Tab PO QAM Tenormin (Atenolol) 25 Mg Tab 25 Mg PO QAM Advair Hfa 230/21 Mcg (Fluticasone-Salmeterol 230/21 Mcg) 1 Aer Aer 2 Puffs INH BID RINSE MOUTH AFTER USING Cozaar (Losartan Potassium) 50 Mg Tab 75 Mg PO QAM Ventolin Inhaler (Albuterol) Aers 2 Puffs INH Q4H PRN Prilosec (Omeprazole) 20 Mg Capcr 20 Mg PO DAILY PRN Ultram (Tramadol HCl) 50 Mg Tab 50-100 Mg PO Q6H PRN Current Inpatient Medications Current Inpatient Medications Medications (Trade) Dose Ordered Sig/Nayeli Route Start Time Stop Time Status Last Admin Dose Admin Enoxaparin Sodium (Lovenox Inj) 40 mg DAILY@1100 SQ 03/26/17 11:00 04/25/17 10:59 03/26/17 10:44 40 MG Ondansetron HCl (Zofran Inj) 4 mg Q6H PRN IV 03/24/17 11:00 04/23/17 10:59 Albuterol (Ventolin Hfa Inhaler) 2 puffs Q4H PRN INH 03/25/17 12:30 04/24/17 12:29 03/27/17 05:50 2 PUFFS Phenol (Chloraseptic 1.4% Buda) 1 sprays PRN PRN MT 03/25/17 20:15 04/24/17 20:14 03/25/17 20:38 1 SPRAYS Oxycodone/ Acetaminophen (Percocet 5-325mg Tab) 1 tab Q4H PRN PO 03/26/17 09:45 04/09/17 09:44 03/26/17 20:52 1 TAB Aspirin (Ecotrin Tab) 81 mg Q2D@0900 PO 03/26/17 09:45 04/25/17 09:44 03/26/17 10:44 81 MG Atenolol (Tenormin Tab) 25 mg QAM PO 03/27/17 09:00 04/26/17 08:59 03/26/17 15:46 25 MG Atorvastatin Calcium (Lipitor Tab) 40 mg QPM PO 03/26/17 21:00 04/25/17 20:59 03/26/17 20:53 40 MG Cetirizine HCl (zyrTEC TAB) 10 mg QAM PO 03/27/17 09:00 04/26/17 08:59 Lorazepam (Ativan Tab) 0.5 mg TID PRN PO 03/26/17 09:45 04/25/17 09:44 03/26/17 21:25 0.5 MG Losartan Potassium (coZAAR TAB) 75 mg QAM PO 03/27/17 09:00 04/26/17 08:59 03/26/17 15:47 75 MG Multivitamins (Multivitamin Tab) 1 tab QAM PO 03/27/17 09:00 04/26/17 08:59 Sodium Chloride ([place] Nasal Buda) 1 sprays DAILY PRN YULISA 03/26/17 09:45 04/25/17 09:44 Sertraline HCl (Zoloft Tab) 150 mg HS PO 03/26/17 21:00 04/25/17 20:59 03/26/17 20:53 150 MG Tramadol HCl (Ultram Tab) 50 mg Q6H PRN PO 03/26/17 09:45 04/25/17 09:44 Triamcinolone Acetonide (Nasacort Allergy 24hr) 1 sprays BID YULISA 03/26/17 21:00 04/25/17 20:59 Pantoprazole Sodium (Protonix Tab) 40 mg DAILY PRN PO 03/26/17 09:45 04/25/17 09:44 Guaifenesin (Mucinex Contr Rel Tab) 600 mg QAM PO 03/27/17 09:00 04/26/17 08:59 Pseudoephedrine HCl (Sudafed Tab) 60 mg DAILY PO 03/27/17 09:00 04/26/17 08:59 Non-Formulary Medication (Non-Formulary Patient'S Own Med) 2 ea BID INH 03/26/17 21:00 04/25/17 20:59 03/26/17 20:53 2 EA Review of Systems Ten systems reviewed and negative except as indicated in HPI. Physical Exam Date Time Temp Pulse Resp B/P (MAP) Pulse Ox O2 Delivery O2 Flow Rate FiO2 03/27/17 06:54 37.0 80 17 159/74 (102) 96 Room Air 03/27/17 00:15 Room Air 03/26/17 23:18 36.8 87 16 138/64 (88) 93 Room Air 03/26/17 22:03 76 18 96 Room Air 03/26/17 15:42 37.2 85 18 158/69 (98) 95 Room Air 03/26/17 15:30 Room Air 03/26/17 11:43 36.9 85 16 145/71 (95) 93 Room Air General Appearance: WD/WN, no apparent distress Head: normocephalic, atraumatic Eyes: normal inspection, sclerae normal ENT: normal ENT inspection, hearing grossly normal, TMs normal, pharynx normal Neck: supple, trachea midline Respiratory/Chest: + wheezing (expiratory wheezing at bases only) Cardiovascular: regular rate, rhythm, no edema, no gallop, no JVD, no murmur, normal peripheral pulses Abdomen/GI: normal bowel sounds, non tender, soft, + pertinent finding ( kamron in place, multiple surgical wounds are closed and not draining with no surrounding erythema.) Extremities/Musculoskelatal: normal inspection, no pedal edema Neurologic/Psych: no motor/sensory deficits, alert, normal mood/affect, oriented x 3 Skin: normal color, + pertinent finding (surgical wounds as above. ) Laboratory Results 03/27/17 06:00 Red Blood Count 2.94, Mean Corpuscular Volume 93.5, Mean Corpuscular Hemoglobin 31.3, Mean Corpuscular Hemoglobin Concent 33.5, Mean Platelet Volume 9.0, Neutrophils (%) (Auto) 74.9, Lymphocytes (%) (Auto) 16.0, Monocytes (%) (Auto) 6.9, Eosinophils (%) (Auto) 2.0, Basophils (%) (Auto) 0.2, Neutrophils # (Auto) 4.13, Lymphocytes # (Auto) 0.88, Monocytes # (Auto) 0.38, Eosinophils # (Auto) 0.11, Basophils # (Auto) 0.01 03/26/17 06:43 Test 03/26/17 06:43 03/27/17 06:00 Anion Gap 7.0 mmol/L (3-11) Est Creatinine Clear Calc Drug Dose 33.0 ml/min Estimated GFR () 55.7 Estimated GFR (Non- 48.1 BUN/Creatinine Ratio 11.2 (10-20) Calcium Level 8.3 mg/dl (8.5-10.1) White Blood Count 5.51 K/uL (4.8-10.8) Red Blood Count 2.94 M/uL (4.2-5.4) Hemoglobin 9.2 g/dL (12.0-16.0) Hematocrit 27.5 % (37-47) Mean Corpuscular Volume 93.5 fL (80-100) Mean Corpuscular Hemoglobin 31.3 pg (25-34) Mean Corpuscular Hemoglobin Concent 33.5 g/dl (32-36) Platelet Count 186 K/uL (130-400) Mean Platelet Volume 9.0 fL (7.4-10.4) Neutrophils (%) (Auto) 74.9 % Lymphocytes (%) (Auto) 16.0 % Monocytes (%) (Auto) 6.9 % Eosinophils (%) (Auto) 2.0 % Basophils (%) (Auto) 0.2 % Neutrophils # (Auto) 4.13 K/uL (1.4-6.5) Lymphocytes # (Auto) 0.88 K/uL (1.2-3.4) Monocytes # (Auto) 0.38 K/uL (0.11-0.59) Eosinophils # (Auto) 0.11 K/uL (0-0.5) Basophils # (Auto) 0.01 K/uL (0-0.2) RDW Standard Deviation 46.4 fL (36.4-46.3) RDW Coefficient of Variation 13.6 % (11.5-14.5) Immature Granulocyte % (Auto) 0.0 % Immature Granulocyte # (Auto) 0.00 K/uL (0.00-0.02) Last 24 Hours Test 03/27/17 06:00 White Blood Count 5.51 K/uL Red Blood Count 2.94 M/uL Hemoglobin 9.2 g/dL Hematocrit 27.5 % Mean Corpuscular Volume 93.5 fL Mean Corpuscular Hemoglobin 31.3 pg Mean Corpuscular Hemoglobin Concent 33.5 g/dl Platelet Count 186 K/uL Mean Platelet Volume 9.0 fL Neutrophils (%) (Auto) 74.9 % Lymphocytes (%) (Auto) 16.0 % Monocytes (%) (Auto) 6.9 % Eosinophils (%) (Auto) 2.0 % Basophils (%) (Auto) 0.2 % Neutrophils # (Auto) 4.13 K/uL Lymphocytes # (Auto) 0.88 K/uL Monocytes # (Auto) 0.38 K/uL Eosinophils # (Auto) 0.11 K/uL Basophils # (Auto) 0.01 K/uL RDW Standard Deviation 46.4 fL RDW Coefficient of Variation 13.6 % Immature Granulocyte % (Auto) 0.0 % Immature Granulocyte # (Auto) 0.00 K/uL Assessment & Plan 77 yo F with h/o well-controlled asthma recently intubated for a planned surgery with post-op NGT placement and subsequent wheezing with chills. She is not requiring oxygen and wheezing is minimal at this point, so will give scheduled nebs and start her on a short course of steroids for 5 days. For the chills and productive cough will ensure no evidence of post-op pneumonia and consider sinusitis as an issue if symptoms persist and CXR is negative. Will cont to monitor her throughout hospital course. Active probs: 1. Acute asthma exacerbation poss 2/2 recent intubations-CXR to ensure to pneumonia, aspiration considered. Prednisone 40mg daily and duonebs scheduled q6h and q2h PRN. Stopped pseudafed 2/2 her reported issues with it at home. Increased guaifenisin to 600mg q12h. Cont incentive spirometry at bedside. 2. s/p Laparoscopic-assisted sigmoid colectomy with mobilization of the splenic flexure on 03/24. Post-op pain is well controlled, cont per Gen Surg. 3. CAD-stable, cont ASA, ARB, BB, and statin 4. HTN-controlled, cont current therapy. 5. PMR-joint pain reportedly stable. Added prednisone for lung issues above. 6. Anemia-chronic, patient is around baseline with a slight decrease likely from intraoperative blood loss. DVT proph-Lovenox Diet-Full liquids FULL CODE Thank you for this consultation. We will follow the patient with you during their hospital stay. You can reach a member of the [facility] Team 21/04 via pager @ . You can reach me via cell @ [phone]. Cassandra Reynoso DO [facility]
--- NOTE | 2017-03-27 09:20 | DIAGNOSTIC IMAGING REPORT ---
TWO VIEW CHEST CLINICAL HISTORY: Dyspnea and wheezing. FINDINGS: PA and lateral chest radiographs are obtained. No prior studies are available for comparison at the time of dictation. The cardiomediastinal silhouette is unremarkable. Linear airspace opacities are identified in the left lower lobe and lingula. The right lung appears clear. There is no pleural effusion or pneumothorax. The skeletal structures are osteopenic. Mild compression deformity is noted in the upper lumbar spine. IMPRESSION: Linear airspace opacities are seen in the left lower lobe and lingula. This likely represents atelectasis. Correlate clinically for evidence of superimposed pneumonia/aspiration pneumonitis. Electronically signed by: Shemar Castro M.D. 03/27/2017 9:18 AM Dictated Date/Time: 03/27/2017 9:17 AM
[2017-03-27] MEDS: OXYCODONE/ACETAMINOPHEN 5-325 TAB PO PRN ×2 (09:43→19:20)
[2017-03-27] MEDS: TRIAMCINOLONE ACET NASAL SPRAY 10.8ML BTL NAE SCH ×2 (09:44→20:36)
[2017-03-27] MEDS: GUAIFENESIN 600 MG TABCR PO SCH ×2 (09:44→20:36)
[2017-03-27] MEDS ORDERED: ALBUT/IPRATROP 3MG/0.5MG NEB 3 ML VIAL INH PRN (09:45)
[2017-03-27] MEDS: MULTIVITAMIN TAB PO SCH (09:45)
[2017-03-27] MEDS: CETIRIZINE HCL 10 MG TAB PO SCH (09:45)
[2017-03-27] MEDS: ADVAIR 230/21 INH SCH ×2 (10:57→20:36)
[2017-03-27] MEDS: LOSARTAN POTASSIUM 50 MG TAB PO SCH (10:57)
[2017-03-27] MEDS: ENOXAPARIN 40 MG/0.4 ML SYR SQ SCH (10:57)
[2017-03-27 11:25] VITALS: PULSE 70; O2SAT 97
[2017-03-27] MEDS: ALBUT/IPRATROP 3MG/0.5MG NEB 3 ML VIAL INH SCH ×3 (11:25→19:36)
[2017-03-27 15:19] VITALS: PULSE 80; O2SAT 97
[2017-03-27 15:30] VITALS: BP 158/54; PULSE 83; TEMP 36.7; O2SAT 94
[2017-03-27] MEDS ORDERED: COUGH DROP (SUGAR FREE) LOZ 24 LOZ/1 BOX ONE (19:28)
[2017-03-27 19:36] VITALS: PULSE 82; O2SAT 97
[2017-03-27] MEDS: SERTRALINE HCL 100 MG TAB PO SCH (20:36)
[2017-03-27] MEDS: ATORVASTATIN 40 MG TAB PO SCH (20:36)
[2017-03-27 23:06] VITALS: BP 149/62; PULSE 87; TEMP 36.8; O2SAT 95
[2017-03-28] VITALS (8 sets, daily range): BP systolic 145–189; BP diastolic 62–82; PULSE 61–81; TEMP 36.4–36.9; O2SAT 95–98
[2017-03-28 06:59] LABS: BASO % 0.2 %; BASO ABS # 0.01 K/uL (0-0.2); EOS % 1.6 %; HEMATOCRIT 25.7 % (37-47); IG% 0.2 %; LYMPH ABS # 0.82 K/uL (1.2-3.4); MEAN CELL VOLUME 92.4 fL (80-100); MEAN CORPUSCULAR HEMOGLOBIN 30.9 pg (25-34); MEAN CORPUSCULAR HGB CONC 33.5 g/dl (32-36); MONO % 7.8 %; NEUT % 74.2 %; PLATELET COUNT 201 K/uL (130-400); RED BLOOD COUNT 2.78 M/uL (4.2-5.4); WHITE BLOOD COUNT 5.14 K/uL (4.8-10.8)
[2017-03-28 07:35] LABS: COMPLETE YES
[2017-03-28] MEDS: ALBUT/IPRATROP 3MG/0.5MG NEB 3 ML VIAL INH SCH ×2 (07:37→11:11)
[2017-03-28] MEDS: LOSARTAN POTASSIUM 50 MG TAB PO SCH (07:38)
[2017-03-28 07:43] LABS: CALCIUM 8.9 mg/dl (8.5-10.1); CREATININE 0.81 mg/dl (0.60-1.20)
[2017-03-28] MEDS: TRIAMCINOLONE ACET NASAL SPRAY 10.8ML BTL NAE SCH ×2 (09:20→20:40)
[2017-03-28] MEDS: ASPIRIN 81 MG ECTAB PO SCH (09:20)
[2017-03-28] MEDS: ADVAIR 230/21 INH SCH ×2 (09:20→20:41)
[2017-03-28] MEDS: GUAIFENESIN 600 MG TABCR PO SCH ×2 (09:20→20:41)
[2017-03-28] MEDS: MULTIVITAMIN TAB PO SCH (09:21)
[2017-03-28] MEDS: CETIRIZINE HCL 10 MG TAB PO SCH (09:21)
--- NOTE | 2017-03-28 09:40 | Progress Note ---
Medicine Progress Note Date & Time of Visit: Mar 28, 2017 at 09:30. Subjective 77 yo F with h/o well-controlled asthma recently intubated for a planned surgery with post-op NGT placement and subsequent wheezing with chills. She is not requiring oxygen has had an improvement in breathing overnight with resolution of productive cough and chills. Her throat is still sore, likely 2/ 2 NGT but she states that this is improving and not getting worse. Would rece changing duonebs to PRN as no wheezing on exam and cont prednisone for total 5 days as outpatient. Her BP was slightly elevated, so this should be rechecked prior to departure and if SBP>160, may consider clonidine. Follow-up set up with PCP office for next week. Objective Last 8 Hrs Date Time Temp Pulse Resp B/P (MAP) Pulse Ox O2 Delivery O2 Flow Rate FiO2 03/28/17 07:40 98 Room Air 03/28/17 07:00 36.4 65 19 176/69 (104) 98 Room Air Physical Exam: GEN: WNWD, in no acute distress, alert and appropriate HEENT: NC/AT, normal sclerae, MMM CARDIO: reg rate, S1/2 heard without m/g/r LUNGS: CTA bilaterally, no crackles, rales or wheezes, good diaphragmatic excursion ABD: soft, non-tender, non-distended, no rebound or guarding, +BS, multiple incision sites that are closed with kamron and c/d/i EXTREMITY: no LE swelling or edema, extremities are warm and well-perfused N/M: no focal deficits, pt is ambulatory SKIN: warm and dry and wounds as above. Laboratory Results: 03/28/17 06:25 Red Blood Count 2.78, Mean Corpuscular Volume 92.4, Mean Corpuscular Hemoglobin 30.9, Mean Corpuscular Hemoglobin Concent 33.5, Mean Platelet Volume 9.0, Neutrophils (%) (Auto) 74.2, Lymphocytes (%) (Auto) 16.0, Monocytes (%) (Auto) 7.8, Eosinophils (%) (Auto) 1.6, Basophils (%) (Auto) 0.2, Neutrophils # (Auto) 3.82, Lymphocytes # (Auto) 0.82, Monocytes # (Auto) 0.40, Eosinophils # (Auto) 0.08, Basophils # (Auto) 0.01 03/28/17 06:25 Test 03/28/17 06:25 White Blood Count 5.14 K/uL (4.8-10.8) Red Blood Count 2.78 M/uL (4.2-5.4) Hemoglobin 8.6 g/dL (12.0-16.0) Hematocrit 25.7 % (37-47) Mean Corpuscular Volume 92.4 fL (80-100) Mean Corpuscular Hemoglobin 30.9 pg (25-34) Mean Corpuscular Hemoglobin Concent 33.5 g/dl (32-36) Platelet Count 201 K/uL (130-400) Mean Platelet Volume 9.0 fL (7.4-10.4) Neutrophils (%) (Auto) 74.2 % Lymphocytes (%) (Auto) 16.0 % Monocytes (%) (Auto) 7.8 % Eosinophils (%) (Auto) 1.6 % Basophils (%) (Auto) 0.2 % Neutrophils # (Auto) 3.82 K/uL (1.4-6.5) Lymphocytes # (Auto) 0.82 K/uL (1.2-3.4) Monocytes # (Auto) 0.40 K/uL (0.11-0.59) Eosinophils # (Auto) 0.08 K/uL (0-0.5) Basophils # (Auto) 0.01 K/uL (0-0.2) RDW Standard Deviation 44.3 fL (36.4-46.3) RDW Coefficient of Variation 13.0 % (11.5-14.5) Immature Granulocyte % (Auto) 0.2 % Immature Granulocyte # (Auto) 0.01 K/uL (0.00-0.02) Red Blood Cell Morphology Unremarkable Anion Gap 7.0 mmol/L (3-11) Est Creatinine Clear Calc Drug Dose 44.9 ml/min Estimated GFR () 80.6 Estimated GFR (Non- 69.6 BUN/Creatinine Ratio 11.0 (10-20) Calcium Level 8.9 mg/dl (8.5-10.1) Last 24 Hours Test 03/28/17 06:25 White Blood Count 5.14 K/uL Red Blood Count 2.78 M/uL Hemoglobin 8.6 g/dL Hematocrit 25.7 % Mean Corpuscular Volume 92.4 fL Mean Corpuscular Hemoglobin 30.9 pg Mean Corpuscular Hemoglobin Concent 33.5 g/dl Platelet Count 201 K/uL Mean Platelet Volume 9.0 fL Neutrophils (%) (Auto) 74.2 % Lymphocytes (%) (Auto) 16.0 % Monocytes (%) (Auto) 7.8 % Eosinophils (%) (Auto) 1.6 % Basophils (%) (Auto) 0.2 % Neutrophils # (Auto) 3.82 K/uL Lymphocytes # (Auto) 0.82 K/uL Monocytes # (Auto) 0.40 K/uL Eosinophils # (Auto) 0.08 K/uL Basophils # (Auto) 0.01 K/uL RDW Standard Deviation 44.3 fL RDW Coefficient of Variation 13.0 % Immature Granulocyte % (Auto) 0.2 % Immature Granulocyte # (Auto) 0.01 K/uL Red Blood Cell Morphology Unremarkable Sodium Level 140 mmol/L Potassium Level 4.0 mmol/L Chloride Level 107 mmol/L Carbon Dioxide Level 26 mmol/L Anion Gap 7.0 mmol/L Blood Urea Nitrogen 9 mg/dl Creatinine 0.81 mg/dl Est Creatinine Clear Calc Drug Dose 44.9 ml/min Estimated GFR () 80.6 Estimated GFR (Non- 69.6 BUN/Creatinine Ratio 11.0 Random Glucose 97 mg/dl Calcium Level 8.9 mg/dl Assessment & Plan 77 yo F with h/o well-controlled asthma recently intubated for a planned surgery with post-op NGT placement and subsequent wheezing with chills. She is not requiring oxygen has had an improvement in breathing overnight with resolution of productive cough and chills. Her throat is still sore, likely 2/ 2 NGT but she states that this is improving and not getting worse. Would rece changing duonebs to PRN as no wheezing on exam and cont prednisone for total 5 days as outpatient. Her BP was slightly elevated, so this should be rechecked prior to departure and if SBP>160, may consider clonidine. Follow-up set up with PCP office for next week. Active probs: 1. Acute asthma exacerbation poss 2/2 recent intubations-CXR revealed atelectasis. No obvious sinus or other infectious symptoms at this time. Duonebs PRN until discharge, then cont home inhalers. Cont prednisone 40mg PO daily for total 5 days, then stop. F/U with PCP office next week. Cont guaifenisin without Sudafed. Cont incentive spirometry. 2. s/p Laparoscopic-assisted sigmoid colectomy with mobilization of the splenic flexure on 03/24. Post-op pain is well controlled, cont per Gen Surg. 3. CAD-stable, cont ASA, ARB, BB, and statin 4. HTN-slightly elevated this morning, poss from the steroids? Cont current home therapy and consider short-acting clonidine prior to departure if still elevated. F/U with PCP office next week. 5. PMR-joint pain reportedly stable. Added prednisone for lung issues above. 6. Anemia-chronic, patient is around baseline with a slight decrease likely from intraoperative blood loss. No indication for transfusion. Appears stable for discharge from a medical perspective as long as BP <160. DVT proph-Lovenox Diet-Full liquids per Gen Surg FULL CODE Dispo-OK to send home from a medical standpoint if BP decreases to <160 over next few hours. Otherwise, may need to give additional treatment going home. Still on Full liquid diet so would consider solid food challenge to ensure stable first. F/u set up for next week with PCP office. Thank you for this consultation. We will follow the patient with you during their hospital stay. You can reach a member of the [facility] Hospitalist Team 21/04 via pager @ . You can reach me via cell @ [phone]. Cassandra Reynoso, [facility] Hospitalist Current Inpatient Medications: Current Inpatient Medications Medications (Trade) Dose Ordered Sig/Nayeli Route Start Time Stop Time Status Last Admin Dose Admin Enoxaparin Sodium (Lovenox Inj) 40 mg DAILY@1100 SQ 03/26/17 11:00 04/25/17 10:59 03/27/17 10:57 40 MG Ondansetron HCl (Zofran Inj) 4 mg Q6H PRN IV 03/24/17 11:00 04/23/17 10:59 Albuterol (Ventolin Hfa Inhaler) 2 puffs Q4H PRN INH 03/25/17 12:30 04/24/17 12:29 03/27/17 05:50 2 PUFFS Phenol (Chloraseptic 1.4% [place]) 1 sprays PRN PRN MT 03/25/17 20:15 04/24/17 20:14 03/25/17 20:38 1 SPRAYS Oxycodone/ Acetaminophen (Percocet 5-325mg Tab) 1 tab Q4H PRN PO 03/26/17 09:45 04/09/17 09:44 03/27/17 19:20 1 TAB Aspirin (Ecotrin Tab) 81 mg Q2D@0900 PO 03/26/17 09:45 04/25/17 09:44 03/28/17 09:20 81 MG Atenolol (Tenormin Tab) 25 mg QAM PO 03/27/17 09:00 04/26/17 08:59 03/28/17 07:39 25 MG Atorvastatin Calcium (Lipitor Tab) 40 mg QPM PO 03/26/17 21:00 04/25/17 20:59 03/27/17 20:36 40 MG Cetirizine HCl (zyrTEC TAB) 10 mg QAM PO 03/27/17 09:00 04/26/17 08:59 03/28/17 09:21 10 MG Lorazepam (Ativan Tab) 0.5 mg TID PRN PO 03/26/17 09:45 04/25/17 09:44 03/26/17 21:25 0.5 MG Losartan Potassium (coZAAR TAB) 75 mg QAM PO 03/27/17 09:00 04/26/17 08:59 03/28/17 07:38 75 MG Multivitamins (Multivitamin Tab) 1 tab QAM PO 03/27/17 09:00 04/26/17 08:59 03/28/17 09:21 1 TAB Sodium Chloride ([place] Nasal [place]) 1 sprays DAILY PRN YULISA 03/26/17 09:45 04/25/17 09:44 Sertraline HCl (Zoloft Tab) 150 mg HS PO 03/26/17 21:00 04/25/17 20:59 03/27/17 20:36 150 MG Tramadol HCl (Ultram Tab) 50 mg Q6H PRN PO 03/26/17 09:45 04/25/17 09:44 Triamcinolone Acetonide (Nasacort Allergy 24hr) 1 sprays BID YULISA 03/26/17 21:00 04/25/17 20:59 03/28/17 09:20 1 SPRAYS Pantoprazole Sodium (Protonix Tab) 40 mg DAILY PRN PO 03/26/17 09:45 04/25/17 09:44 Non-Formulary Medication (Non-Formulary Patient'S Own Med) 2 ea BID INH 03/26/17 21:00 04/25/17 20:59 03/28/17 09:20 2 EA Albuterol/ Ipratropium (Duoneb) 3 ml QIDR INH 03/27/17 09:00 04/26/17 08:59 03/27/17 19:36 3 ML Prednisone (PredniSONE TAB) 40 mg DAILY PO 03/27/17 09:00 04/26/17 08:59 03/28/17 09:21 40 MG Guaifenesin (Mucinex Contr Rel Tab) 600 mg Q12 PO 03/27/17 09:00 04/26/17 08:59 03/28/17 09:20 600 MG Albuterol/ Ipratropium (Duoneb) 3 ml Q2H PRN INH 03/27/17 09:45 04/26/17 09:44
--- NOTE | 2017-03-28 09:42 | Consultant Recommendations ---
Community Marketing Manager Recommendations Date of Service Mar 28, 2017. Community Marketing Manager Recommendations Recommend taking prednisone 40mg PO daily x 5 days (total therapy including hospital stay) Follow-up with PCP office next week, 04/02 @1:25pm with Consuelo Schwartz PA-C for BP monitoring and ensuring resolution of asthma exacerbation. Cont home inhaler therapy on discharge. It was a pleasure taking care of you! Call if you have any questions or problems. You can reach a [facility] hospitalist on duty at [facility] 24 hours a day by calling [phone]. Take care of yourself. Cassandra Reynoso, DO [facility] Hospitalist
[2017-03-28] MEDS: ENOXAPARIN 40 MG/0.4 ML SYR SQ SCH (10:45)
[2017-03-28] MEDS ORDERED: CLONIDINE HCL 0.1 MG TAB PO PRN (12:15)
[2017-03-28] MEDS ORDERED: CLONIDINE HCL 0.1 MG TAB PO ONE (12:30)
[2017-03-28] MEDS: OXYCODONE/ACETAMINOPHEN 5-325 TAB PO PRN (13:17)
--- NOTE | 2017-03-28 14:18 | Discharge Instructions ---
Discharge Instructions Date of Service Mar 28, 2017. Admission Reason for Admission: Diverticulitis of Sigmoid Colon Discharge Discharge Diagnosis / Problem: Recurrent diverticulitis with stricture Discharge Goals Goal(s): Decrease discomfort Activity Recommendations Activity Limitations: as noted below No heavy lifting over 10 pounds or strenuous activity for 6 weeks or until cleared by surgeon No submerging incision underwater for 2 weeks [address] while taking narcotic pain medication or until you are pain free whichever comes first Light activity and walking is encouraged to prevent blood clots . Instructions / Follow-Up Instructions / Follow-Up Follow-up with Dr. Pennington in about 1 week. Please call office at [phone] if you do not already have an appointment Your kamron will be removed at follow-up visit You may shower Current Hospital Diet Patient's current hospital diet: Low Fiber Diet Discharge Diet Recommended Diet: Low Fiber Diet Procedures Procedures Performed: Laparoscopic assisted sigmoid colectomy Pending Studies Studies pending at discharge: no Medical Emergencies . Who to Call and When: Medical Emergencies: If at any time you feel your situation is an emergency, please call 911 immediately. . Non-Emergent Contact Non-Emergency issues call your: Primary Care Provider, Surgeon Call Non-Emergent contact if: you have a fever, temperature is above 101.5, your pain is not controlled, your pain is worsening, wound has increased drainage, wound has increased redness, wound has increased pain . "Provider Documentation" section prepared by Melva Walls. . Nursing Program Director Recommendations Nursing Program Director Recommendations: Recommend taking prednisone 40mg PO daily x 5 days (total therapy including hospital stay) Follow-up with PCP office next week, 04/02 @1:25pm with Consuelo Schwartz PA-C for BP monitoring and ensuring resolution of asthma exacerbation. Cont home inhaler therapy on discharge. It was a pleasure taking care of you! Call if you have any questions or problems. You can reach a [facility] hospitalist on duty at [facility] 24 hours a day by calling [phone]. Take care of yourself. Cassandra Reynoso, DO [facility] Hospitalist VTE Core Measure Inpt VTE Proph given/why not?: Enoxaparin (Lovenox)SQ, [facility] Search Results: patient reviewed within database, no issues identified
--- NOTE | 2017-03-28 14:23 | Surgery Progress Note ---
Surgery Progress Note Date of Service Mar 28, 2017. Subjective Post OP Day: POD # 4 s/p laparoscopic assisted sigmoid colectomy + feeling well, + bowel movement, + flatus, + pain controlled, + diet ( tolerating full liquids), No chest pain, No SOB, No nausea, No vomiting Objective Vital Signs: Date Time Temp Pulse Resp B/P (MAP) Pulse Ox O2 Delivery O2 Flow Rate FiO2 03/28/17 13:58 145/75 (98) 03/28/17 13:08 76 175/64 (101) 03/28/17 11:53 75 189/72 (111) 03/28/17 11:11 69 14 97 Room Air 03/28/17 07:40 98 Room Air 03/28/17 07:00 36.4 65 19 176/69 (104) 98 Room Air 03/28/17 00:15 Room Air 03/27/17 23:06 36.8 87 16 149/62 (91) 95 Room Air 03/27/17 19:36 82 16 97 Room Air 03/27/17 19:20 Room Air 03/27/17 15:30 36.7 83 18 158/54 (88) 94 Room Air 03/27/17 15:30 Room Air 03/27/17 15:19 80 16 97 Room Air General Appearance: WD/WN, no apparent distress Head: normocephalic, atraumatic Neck: trachea midline Respiratory/Chest: no respiratory distress, no accessory muscle use Incision(s): clean, dry, intact, no erythema, ecchymosis (some ecchymosis present around midline and left lateral incisions) Extremities: normal inspection Laboratory Results: Results Past 24 Hours Test 03/28/17 06:25 Range/Units White Blood Count 5.14 4.8-10.8 K/uL Red Blood Count 2.78 4.2-5.4 M/uL Hemoglobin 8.6 12.0-16.0 g/dL Hematocrit 25.7 37-47 % Mean Corpuscular Volume 92.4 80-100 fL Mean Corpuscular Hemoglobin 30.9 25-34 pg Mean Corpuscular Hemoglobin Concent 33.5 32-36 g/dl Platelet Count 201 130-400 K/uL Mean Platelet Volume 9.0 7.4-10.4 fL Neutrophils (%) (Auto) 74.2 % Lymphocytes (%) (Auto) 16.0 % Monocytes (%) (Auto) 7.8 % Eosinophils (%) (Auto) 1.6 % Basophils (%) (Auto) 0.2 % Neutrophils # (Auto) 3.82 1.4-6.5 K/uL Lymphocytes # (Auto) 0.82 1.2-3.4 K/uL Monocytes # (Auto) 0.40 0.11-0.59 K/uL Eosinophils # (Auto) 0.08 0-0.5 K/uL Basophils # (Auto) 0.01 0-0.2 K/uL RDW Standard Deviation 44.3 36.4-46.3 fL RDW Coefficient of Variation 13.0 11.5-14.5 % Immature Granulocyte % (Auto) 0.2 % Immature Granulocyte # (Auto) 0.01 0.00-0.02 K/uL Red Blood Cell Morphology Unremarkable Sodium Level 140 136-145 mmol/L Potassium Level 4.0 3.5-5.1 mmol/L Chloride Level 107 98-107 mmol/L Carbon Dioxide Level 26 21-32 mmol/L Anion Gap 7.0 3-11 mmol/L Blood Urea Nitrogen 9 7-18 mg/dl Creatinine 0.81 0.60-1.20 mg/dl Est Creatinine Clear Calc Drug Dose 44.9 ml/min Estimated GFR () 80.6 Estimated GFR (Non- 69.6 BUN/Creatinine Ratio 11.0 10-20 Random Glucose 97 70-99 mg/dl Calcium Level 8.9 8.5-10.1 mg/dl Assessment & Plan POD # 4 s/p laparoscopic assisted sigmoid colectomy -Hypertensive, improved with Clonidine - +cough, sputum production, clear slightly yellow, afebrile, CXR showing atelectasis - abdominal pain minimal and controlled - +bowel function Plan: Advance diet to low fiber diet for dinner continue home meds Continue PO Prednisone Continue and encouraged incentive spirometry Hopeful discharge tomorrow has seen patient and agrees with above
[2017-03-28] MEDS ORDERED: ALBUT/IPRATROP 3MG/0.5MG NEB 3 ML VIAL INH PRN (15:00)
[2017-03-28] MEDS ORDERED: AZITHROMYCIN 250 MG TAB PO SCH (16:15)
[2017-03-28] MEDS: SERTRALINE HCL 100 MG TAB PO SCH (20:41)
[2017-03-28] MEDS: ATORVASTATIN 40 MG TAB PO SCH (20:41)
[2017-03-29 07:07] VITALS: BP 156/73; PULSE 59; TEMP 36.8; O2SAT 98
[2017-03-29] MEDS ORDERED: PRD20 PO (07:45)
[2017-03-29] MEDS ORDERED: AZIT500T PO (07:45)
[2017-03-29 07:54] LABS: HEMATOCRIT 30.8 % (37-47); MEAN CELL VOLUME 91.4 fL (80-100); MEAN CORPUSCULAR HEMOGLOBIN 29.7 pg (25-34); MEAN CORPUSCULAR HGB CONC 32.5 g/dl (32-36); MEAN PLATELET VOLUME 8.7 fL (7.4-10.4); PLATELET COUNT 285 K/uL (130-400); RED BLOOD COUNT 3.37 M/uL (4.2-5.4); WHITE BLOOD COUNT 6.45 K/uL (4.8-10.8)
[2017-03-29 08:27] LABS: BUN/CREATININE RATIO 15.1 (10-20); CALCIUM 9.3 mg/dl (8.5-10.1); CREATININE 1.1 mg/dl (0.60-1.20); POTASSIUM 3.9 mmol/L (3.5-5.1)
[2017-03-29] MEDS: GUAIFENESIN 600 MG TABCR PO SCH (08:43)
[2017-03-29] MEDS: CETIRIZINE HCL 10 MG TAB PO SCH (08:43)
[2017-03-29] MEDS: ADVAIR 230/21 INH SCH (08:43)
[2017-03-29] MEDS: TRIAMCINOLONE ACET NASAL SPRAY 10.8ML BTL NAE SCH (08:43)
[2017-03-29] MEDS: LOSARTAN POTASSIUM 50 MG TAB PO SCH (08:45)
[2017-03-29] MEDS: MULTIVITAMIN TAB PO SCH (08:45)
--- NOTE | 2017-03-29 09:45 | Surgery Progress Note ---
Surgery Progress Note Date of Service Mar 29, 2017. Subjective Post OP Day: 5 + feeling well, + bowel movement, + flatus, + nausea, + vomiting, + diet ( tolerated regular diet) Objective Vital Signs: Date Time Temp Pulse Resp B/P (MAP) Pulse Ox O2 Delivery O2 Flow Rate FiO2 03/29/17 08:30 Room Air 03/29/17 07:07 36.8 59 17 156/73 (100) 98 Room Air 03/28/17 23:35 Room Air 03/28/17 23:00 36.7 61 16 168/62 (97) 98 Room Air 03/28/17 16:30 Room Air 03/28/17 16:07 36.9 81 18 154/82 (106) 95 Room Air 03/28/17 13:58 145/75 (98) 03/28/17 13:08 76 175/64 (101) 03/28/17 11:53 75 189/72 (111) 03/28/17 11:11 69 14 97 Room Air Abdomen: normal bowel sounds, non tender, non distended, soft Incision(s): clean, dry, intact, no erythema Laboratory Results: Results Past 24 Hours Test 03/29/17 07:27 Range/Units White Blood Count 6.45 4.8-10.8 K/uL Red Blood Count 3.37 4.2-5.4 M/uL Hemoglobin 10.0 12.0-16.0 g/dL Hematocrit 30.8 37-47 % Mean Corpuscular Volume 91.4 80-100 fL Mean Corpuscular Hemoglobin 29.7 25-34 pg Mean Corpuscular Hemoglobin Concent 32.5 32-36 g/dl RDW Standard Deviation 43.5 36.4-46.3 fL RDW Coefficient of Variation 12.9 11.5-14.5 % Platelet Count 285 130-400 K/uL Mean Platelet Volume 8.7 7.4-10.4 fL Sodium Level 139 136-145 mmol/L Potassium Level 3.9 3.5-5.1 mmol/L Chloride Level 103 98-107 mmol/L Carbon Dioxide Level 28 21-32 mmol/L Anion Gap 8.0 3-11 mmol/L Blood Urea Nitrogen 17 7-18 mg/dl Creatinine 1.10 0.60-1.20 mg/dl Est Creatinine Clear Calc Drug Dose 33.0 ml/min Estimated GFR () 55.7 Estimated GFR (Non- 48.1 BUN/Creatinine Ratio 15.1 10-20 Random Glucose 86 70-99 mg/dl Calcium Level 9.3 8.5-10.1 mg/dl Assessment & Plan S/P sigmoid colectomy Bowels moving No increasing pain Tolerated regular diet No further wheezing Appreciate Dr. Reynoso's help Home on Zithromax Hgb 10 Can D/C to home Instructions discussed
[2017-03-29 10:31] VITALS: BP 156/73; PULSE 59; TEMP 36.8; O2SAT 98
[2017-03-29] MEDS: OXYCODONE/ACETAMINOPHEN 5-325 TAB PO PRN (10:46)
--- NOTE | 2017-04-03 10:43 | Discharge Summary ---
Discharge Summary Dates Admission Date / Time: Mar 24, 2017 at 11:02 Discharge Date: Mar 29, 2017 Dispostion / Condition Discharge Disposition: Home Condition at Discharge: Good Principal Diagnosis (1) Diverticulitis Problem List (1) Diverticulitis (2) Colon stricture (3) Asthma Consultations / Procedures Consultations: Internal medicine Procedures: Laparoscopic sigmoid colectomy with primary anastomosis Pending Studies / Follow-Up None Medication Reconciliation New Medications: Azithromycin (Zithromax) 500 Mg Tab 1 TAB PO DAILY for 4 Days, #4 TAB Continued Medications: Albuterol Inhaler (Ventolin Inhaler) Aers 2 PUFFS INH Q4H PRN for SOB/Wheezing Aspirin (Aspirin Ec) 81 Mg Tab 81 MG PO Q2D AM Atenolol (Tenormin) 25 Mg Tab 25 MG PO QAM Atorvastatin (Lipitor) 40 Mg Tab 40 MG PO QPM, TAB Calcium Carbonate-Vitamin D (Oscal 500/200 D-3) 1 Tab Tab 1 TAB PO QAM Cetirizine (Zyrtec) 10 Mg Tab 10 MG PO QAM, TAB Cholecalciferol (Vitamin D3) 2,000 Unit Cap 1 CAP PO QAM for 90 Days, #90 CAP 3 Refills Fluticasone-Salmeterol 230/21 Mcg (Advair Hfa 230/21 Mcg) 1 Aer Aer 2 PUFFS INH BID, AER RINSE MOUTH AFTER USING Lorazepam (Ativan) 0.5 Mg Tab 0.5 MG PO TID PRN for PRN, TAB Losartan Potassium (Cozaar) 50 Mg Tab 75 MG PO QAM Multivitamin (Multivitamin) Tab 1 TAB PO QAM, TAB Omeprazole (Prilosec) 20 Mg Capcr 20 MG PO DAILY PRN for Indigestion Pseudoephedrine-Guaifenesin (Mucinex D) 1 Tab Tab 400 MG PO QAM for 10 Days, TAB Saline (Saline Nasal [place] ) 0.65 % Spr 1 SPRY YULISA PRN for 7 Days, #60 ML Sertraline (Zoloft) 100 Mg Tab 150 MG PO HS, TAB Tramadol (Ultram) 50 Mg Tab 50-100 MG PO Q6H PRN for Pain, TAB Triamcinolone Acetonide (Nasal (Nasacort Allergy 24Hr) 55 Mcg/Act Spr 1 SPRAY YULISA BID Admission HPI Per the Admitting provider: Patient had a history of recurrent sigmoid diverticulitis with stricture of the sigmoid colon on recent colonoscopy. She opted for sigmoid colectomy as an outpatient by Dr. Pennington. She presented to [facility] for her scheduled procedure. Hospital Course (1) Diverticulimayte Buck was scheduled for elective laparoscopic sigmoid colectomy with primary anastomosis. She was taken to operating room and underwent surgical procedure. She tolerated procedure well without any difficulties and was transferred to PACU and then Med/Surg floor in stable condition. Her Post op orders included: NPO, Quiroz to gravity, Dilaudid WARD SERVICE SUPERVISOR and breakthrough IV for pain, IV Zofran, IV Fluids, and NGT to LIS. POD # 1 she was passing flatus and feeling okay. Pain was controlled with WARD SERVICE SUPERVISOR. She had a sore throat from NGT. 400 cc of bilious output since surgery in NGT. Her home Advair was restarted. POD # 2 she had + bowel function with liquid bowel movements. The NGT was discontinued and clear liquids were started. Dilaudid [employer] SERVICE SUPERVISOR was discontinued and oral Percocet was started. All of her home medications were resumed. POD # 3 she continued to have positive bowel function. She did have some wheezing overnight and had a Nebulizer treatment but was still short of breath therefore internal medicine consultation was ordered. Dr. Reynoso placed her on oral Percocet for 5 days. POD # 4 her diet was advanced to low fiber diet. POD # 5 she had no further wheezing or shortness of breath. She was discharged home on POD # 5 in stable condition with PO Zithromax. Overall hospital course was uneventful. (2) Asthma ON POD # 3 she developed some wheezing and Shortness of breath despite home Advair and a nebulizer treatment. Internal medicine was consulted and started her on PO Prednisone for 5 days. On POD # 5 she had no further wheezing or shortness of breath. She was discharged home on a course of Zithromax and to follow-up with PCP. Discharge Instructions as given to patient Copies To Primary Care Provider: Kumar Cordero M.D.. Problem Qualifiers (1) Diverticulitis: Diverticulitis site: large intestine Diverticulitis bleeding: without bleeding Diverticulitis complication: without perforation or abscess Qualified Codes: K57.32 - Diverticulitis of large intestine without perforation or abscess without bleeding (2) Asthma: Asthma severity: mild intermittent
== END 2017-03-29 11:04 | disposition home or self-care (01) | DRG 330 ==
LOC: C.ACU 05:34 → C.MSN 11:02 → ENRESERV 11:33
PROVIDERS: ADMIT Surgery; ATTEND Surgery
PROC: 0DBN0ZZ Excision of Sigmoid Colon, Open Approach (ICD-10-PCS; principal; 2017-03-24 07:00)
DX: K56.60 Unspecified intestinal obstruction (principal); K57.32 Diverticulitis of large intestine without perforation or abscess without bleeding; J98.11 Atelectasis; J45.901 Unspecified asthma with (acute) exacerbation; D64.9 Anemia, unspecified; M35.3 Polymyalgia rheumatica; N18.3 Chronic kidney disease, stage 3 (moderate); I25.10 Atherosclerotic heart disease of native coronary artery without angina pectoris; I44.7 Left bundle-branch block, unspecified; Z79.82 Long term (current) use of aspirin; Z79.899 Other long term (current) drug therapy